=== PATIENT | male | born 1955 | race Caucasian/White ===

== ENCOUNTER → 2020-12-06 16:13 | Outpatient (CLI) | payer MEDICARE, SELFPAY ==
[2020-12-08 10:16] LABS: Covid-19 Nasal PCR Sendout P&C Negative
== END ==
PROVIDERS: Visit Provider Nurse Practitioner Family
DX: Z20.822 Contact with and (suspected) exposure to COVID-19 (principal)
CPT/HCPCS: U0004

== ENCOUNTER 2021-11-05 16:52 | Observation (INO) | payer MEDICARE, SELFPAY ==
[2021-11-05] VITALS (13 sets, daily range): BP systolic 135–171; BP diastolic 66–100; PULSE 68–91; RESP 14–21; TEMP 36.6–36.8; O2SAT 95–99; BMI 32.3; BMI 31.1; BMI 30.9
--- NOTE | 2021-11-05 17:04 | ECG_ITS ---
APPROVED REPORT Exam: Resting ECG HR:77 bpm ECG Measurements Heart Rate 77 AXES NE 178 P 30 QRSd 82 QRS -3 QT 360 T 29 QTc 407 Conclusion Normal sinus rhythm Normal ECG Electronically signed by : Daniel Noland MD 11/06/2021 13:24:51
--- NOTE | 2021-11-05 17:05 | PC.NURSE ---
Pt to CT
--- NOTE | 2021-11-05 17:05 | CT_ITS ---
PROCEDURE INFORMATION: Exam: CT Head Without Contrast Exam date and time: 11/05/2021 5:05 PM Age: 66 years old Clinical indication: Altered mental status/memory loss and speech disturbance; Confusion or disorientation; Slurred speech; Additional info: R/O CVA TECHNIQUE: Imaging protocol: Computed tomography of the head without contrast. Radiation optimization: All CT scans at this facility use at least one of these dose optimization techniques: automated exposure control; mA and/or kV adjustment per patient size (includes targeted exams where dose is matched to clinical indication); or iterative reconstruction. Other technique: STROKE PROTOCOL was implemented. COMPARISON: BRW/O MRI-BRAIN W/O 07/12/2017 8:53 AM FINDINGS: Brain: Vague left greater than right hypoattenuation in the internal capsule and thalamus. See for example image 27 of series 3. This is of uncertain significance, but could represent acute infarct. No hemorrhage. Mild periventricular white matter hypoattenuation may represent chronic small vessel ischemia. No mass effect. Cerebral ventricles: Moderate ventricular enlargement similar to prior. Paranasal sinuses: Visualized sinuses are unremarkable. No fluid levels. Mastoid air cells: Visualized mastoid air cells are well aerated. Bones/joints: Unremarkable. No acute fracture. Soft tissues: Unremarkable. IMPRESSION: Vague left greater than right hypoattenuation in the internal capsule and thalamus. Recommend MR for better characterization and to exclude infarct. ASSESSMENT: ASPECTS ([place] Stroke Program Early CT Score) is 9. Case discussed with Dr. Brooks over the phone at 1:40 p.m. [place] time
[2021-11-05 17:11] LABS: POC Glucose,Bedside 145 (70-110)
--- NOTE | 2021-11-05 17:12 | HMH.EDGENADL ---
ED Disposition Clinical Impression: Stroke Qualifiers: CVA mechanism: unspecified Qualified Code(s): I63.9 - Cerebral infarction, unspecified Disposition: Admitted as Observation Condition on Discharge: Fair Referrals: Provider,Referral, [Referring] - - Critical Care Critical Care Time: No Attestation: On , the high probability of a clinically significant, sudden or life threatening deterioration of the following system(s) required my full and direct attention, intervention and personal management. The time I documented below is in addition to time spent performing reported procedures but includes the following listed in this critical care notation. Medical Decision Making - Medical Records Medical records reviewed: Yes: I reviewed the patient's medical records. MR Comment: Reviewed records on [facility] [employer] link. 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 Last MRI September 2019. He was scheduled for an MRI of the brain this September, but states she was unaware that that has been scheduled, states she did not resolve. - Chris Inquiry Pt receiving controlled substance: No Vital Signs: 11/05/21 16:54 11/05/21 17:31 11/05/21 18:00 Temperature 98.3 F Temperature Source Oral Pulse Rate 80 80 Pulse Rate [Right Radial] 80 Respiratory Rate 18 16 20 Blood Pressure 161/100 H 135/98 H Blood Pressure [Right Arm] 137/96 H Blood Pressure Mean 120 117 Blood Pressure Mean [Right Arm] 109 Blood Pressure Source [Right Arm] Automatic Cuff Blood Pressure Position [Right Arm] Sitting 02 Sat by Pulse Oximetry 99 99 95 Oxygen Delivery Method Room Air 11/05/21 18:30 11/05/21 18:39 11/05/21 19:00 Temperature Temperature Source Pulse Rate 80 76 80 Pulse Rate [Right Radial] Respiratory Rate 16 21 15 Blood Pressure 141/96 H 155/87 H 143/91 H Blood Pressure [Right Arm] Blood Pressure Mean 109 114 Blood Pressure Mean [Right Arm] Blood Pressure Source [Right Arm] Blood Pressure Position [Right Arm] 02 Sat by Pulse Oximetry 99 98 97 Oxygen Delivery Method - Lab Data Lab Results 11/05/21 17:03: POC Glucose 145 H 11/05/21 17:31: WBC 4.5 L, RBC 4.78, Hgb 8.7 L, Hct 30.8 L, MCV 64.5 L, MCH 18.2 L, MCHC 28.3 L, RDW 16.6, Plt Count 503 H, MPV 7.9, Neut % (Auto) 60.6, Lymph % (Auto) 26.8, [place] % (Auto) 8.7, Eos % (Auto) 3.7, Baso % (Auto) 0.3, Neut # (Auto) 2.7, Lymph # (Auto) 1.2, [place] # (Auto) 0.4, Eos # (Auto) 0.2, Baso # (Auto) 0.0 11/05/21 17:31: Sodium 135 L, Potassium 4.0, Chloride 102, Carbon Dioxide 26, Anion Gap 11.0, BUN 15, Creatinine 1.00, Estimated Creat Clear 117, Estimated GFR 75, Est GFR ( Amer) 91, Glucose 132 H, Calcium 9.3 11/05/21 17:31: PT 11.1, INR 0.98, APTT 25.7 11/05/21 19:21: SARS-CoV-2 (PCR) Not detected, Influenza A Untype (PCR) Not detected, Influenza Type B (PCR) Not detected Result diagrams: 11/05/21 17:31 11/05/21 17:31 Orders (Tests/Meds): ED MEDICATIONS Generic Name Dose Route Start Last Admin Trade Name Freq PRN Reason Stop Dose Admin Atorvastatin Calcium 40 mg 11/05/21 21:00 Atorvastatin 40mg Tablet PO 12/05/21 20:59 HS GIOVANY Discontinued Medications Generic Name Dose Route Start Last Admin Trade Name Freq PRN Reason Stop Dose Admin Aspirin 324 mg 11/05/21 17:55 11/05/21 17:58 Aspirin 81mg Chewable Tablet PO 11/05/21 17:56 324 mg ONCE ONE Administration Iopamidol 100 ml 11/05/21 18:44 11/05/21 18:45 Iopamidol-370 (76%);100ml Bottle IV 11/05/21 18:45 100 ml ONCE ONE Administration Sodium Chloride 50 ml 11/05/21 18:44 11/05/21 18:45 0.9 % Sodium Chloride 50 Ml Vial IV 11/05/21 18:45 50 ml ONCE ONE Administration Sodium Chloride 10 ml 11/05/21 18:44 11/05/21 18:45 Sodium Chloride 0.9% 10ml Syr (Rad Only) IV 11/05/21 18:45 10 ml ONCE ONE Administration - Radiology Data #1 Image(s): Chest Fina
--- NOTE | 2021-11-05 17:25 | XR_ITS ---
PROCEDURE INFORMATION: Exam: XR Chest Exam date and time: 11/05/2021 5:25 PM Age: 66 years old Clinical indication: Shortness of breath; Additional info: Stroke SX TECHNIQUE: Imaging protocol: XR of the chest. Views: 1 view. COMPARISON: No relevant prior studies available. FINDINGS: Lungs: Unremarkable. No consolidation. Pleural spaces: Unremarkable. No pleural effusion. No pneumothorax. Heart/Mediastinum: Port-A-Cath in good position. No cardiomegaly. Bones/joints: Unremarkable. IMPRESSION: No acute findings.
--- NOTE | 2021-11-05 17:37 | PC.NURSE ---
on the phone with VIVIEN
--- NOTE | 2021-11-05 17:38 | PC.NURSE ---
speaking with VIVIEN
[2021-11-05 17:39] LABS: Basophils % 0.3 % (0.1-2.0); Eosinophils # 0.2 K/mm3 (0.0-0.4); Eosinophils % 3.7 % (0.1-12.0); Hematocrit 30.8 % (42.0-52.0); Hemoglobin 8.7 g/dL (14.1-18.0); Lymphocytes # 1.2 K/mm3 (0.7-4.5); Lymphocytes % 26.8 % (10-50); Mean Corpuscular HGB Conc 28.3 g/dL (31.8-35.4); Mean Corpuscular Hemoglobin 18.2 pg (27.0-31.2); Mean Corpuscular Volume 64.5 fl (80-94); Mean Platelet Volume 7.9 fl (7.4-10.4); Monocytes # 0.4 K/mm3 (0.1-1.0); Monocytes % 8.7 % (1.7-9.3); Neutrophils # 2.7 K/mm3 (1.8-7.8); Neutrophils % 60.6 % (37.0-80.0); Platelet Count 503 K/mm3 (142-424); Red Blood Count 4.78 M/mm3 (4.60-6.20); Red Cell Distribution Width 16.6 % (11.5-17.5); White Blood Count 4.5 K/mm3 (4.8-10.8)
[2021-11-05 17:48] LABS: Blood Urea Nitrogen 15 mg/dl (9-20); Calcium 9.3 mg/dl (8.4-10.2); Carbon Dioxide 26 mmol/L (22.0-30.0); Chloride 102 mmol/L (98-107); Creatinine Clearance Estimated 117 mL/min (50-200); Estimated Glomerular Filt Rate 75 ml/min (>60); GFR (African American) 91 ML/MIN (>60); Glucose 132 mg/dl (74-100); Sodium 135 mmol/L (136-145)
[2021-11-05 17:50] LABS: Activated Partial Thrombo Time 25.7 seconds (22.8-30.6); INR 0.98 (0.9-1.1); Prothrombin Time 11.1 seconds (10.1-12.5)
--- NOTE | 2021-11-05 17:53 | PC.NURSE ---
calling [facility] stroke team
--- NOTE | 2021-11-05 18:00 | PC.NURSE ---
speaking to dr schwartz
--- NOTE | 2021-11-05 18:03 | CT_ITS ---
PROCEDURE INFORMATION: Exam: CT Angiography Neck With Contrast Exam date and time: 11/05/2021 6:03 PM Age: 66 years old Clinical indication: Other: Stroke protocol TECHNIQUE: Imaging protocol: Computed tomography angiography of the neck with contrast. 3D rendering (Not supervised by radiologist): MIP and/or 3D reconstructed images were created by the technologist. Radiation optimization: All CT scans at this facility use at least one of these dose optimization techniques: automated exposure control; mA and/or kV adjustment per patient size (includes targeted exams where dose is matched to clinical indication); or iterative reconstruction. Contrast material: ISOVUE 370; Contrast volume: 100 ml; Contrast route: INTRAVENOUS (IV); COMPARISON: CT HEAD/BRAIN WO CON 11/05/2021 5:06 PM FINDINGS: Right common carotid artery: No stenosis. No dissection or occlusion. Right internal carotid artery: No stenosis of the extracranial segment. No dissection or occlusion. Right external carotid artery: No occlusion or stenosis of the origin. Left common carotid artery: No stenosis. No dissection or occlusion. Left internal carotid artery: No stenosis of the extracranial segment. No dissection or occlusion. Left external carotid artery: No occlusion or stenosis of the origin. Left anterior cerebral artery: Diminutive or absent left A2 segment. Right vertebral artery: No stenosis. No dissection or occlusion. Left vertebral artery: No stenosis. No dissection or occlusion. Left posterior cerebral artery: origin of the left MAINTAINABILITY ENGINEER. Soft tissues: Normal. No significant soft tissue swelling. Bones/joints: No acute fracture. 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 No high-grade stenosis or occlusion. REFERENCES: NASCET CRITERIA. The degree of internal carotid artery stenosis is based on NASCET criteria. Normal is no stenosis. Mild is less than 50% stenosis. Moderate is 50-69% stenosis. Severe is 70% to 99% stenosis. Total occlusion is no detectable patent lumen.
--- NOTE | 2021-11-05 18:03 | CT_ITS ---
PROCEDURE INFORMATION: Exam: CT Angiography Head With Contrast, Arteriography Exam date and time: 11/05/2021 6:03 PM Age: 66 years old Clinical indication: Other: Stroke protocol TECHNIQUE: Imaging protocol: Computed tomography angiography of the head with contrast. Exam focused on the arteries. 3D rendering (Not supervised by radiologist): MIP and/or 3D reconstructed images were created by the technologist. Radiation optimization: All CT scans at this facility use at least one of these dose optimization techniques: automated exposure control; mA and/or kV adjustment per patient size (includes targeted exams where dose is matched to clinical indication); or iterative reconstruction. Contrast material: ISOVUE 370; Contrast volume: 100 ml; Contrast route: INTRAVENOUS (IV); COMPARISON: CT HEAD/BRAIN WO CON 11/05/2021 5:06 PM FINDINGS: ANTERIOR CIRCULATION: Right internal carotid artery: Unremarkable. Intracranial segment is patent with no significant stenosis. No aneurysm. Right middle cerebral artery: Unremarkable. No occlusion or significant stenosis. No aneurysm. Right anterior cerebral artery: Unremarkable. No occlusion or significant stenosis. No aneurysm. Left internal carotid artery: Unremarkable. Intracranial segment is patent with no significant stenosis. No aneurysm. Left middle cerebral artery: Unremarkable. No occlusion or significant stenosis. No aneurysm. Left anterior cerebral artery: Diminutive or absent A2 POSTERIOR CIRCULATION: Right vertebral artery: Unremarkable. No occlusion or significant stenosis. No aneurysm. Left vertebral artery: Unremarkable. No occlusion or significant stenosis. No aneurysm. Basilar artery: Unremarkable. No occlusion or significant stenosis. No aneurysm. Right posterior cerebral artery: Unremarkable. No occlusion or significant stenosis. No aneurysm. Left posterior cerebral artery: origin Brain: No definite mass, mass effect, or midline shift. Cerebral ventricles: No ventriculomegaly. Bones/joints: Unremarkable. No acute fracture. Soft tissues: Unremarkable. 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 No high-grade stenosis or occlusion.
--- NOTE | 2021-11-05 19:03 | PC.NURSE ---
Spoke with Dr Gonzales with [facility] and he advised to look at the report. made aware.
[2021-11-05 19:25] LABS: Coronavirus 19, PCR Not Detected (NotDetected); Influenza A, PCR Not Detected (NotDetected); Influenza B, PCR Not Detected (NotDetected)
--- NOTE | 2021-11-05 19:31 | PC.NURSE ---
[facility] called to confirm MD saw report on CT head.
--- NOTE | 2021-11-05 20:15 | PC.NURSE ---
[facility]
--- NOTE | 2021-11-05 20:25 | PC.NURSE ---
bed side swallow test done at 2021 pt was able to drinnk 8 oz of water with no difficulty.
--- NOTE | 2021-11-05 20:38 | PC.NURSE ---
pt states that he has not taken any medication in over a month. he also stated that he thought he would be better without them.
--- NOTE | 2021-11-05 20:46 | PC.NURSE ---
Patient admitted to 210
--- NOTE | 2021-11-05 22:42 | PC.NURSE ---
PT ARRIVED TO FLOOR VIA STRETCHER FROM ED W/STAFF @[id number]
[2021-11-06 04:00] VITALS: BP 145/81; PULSE 82; RESP 16; TEMP 36.7; O2SAT 100
[2021-11-06 05:00] VITALS: BMI 31.1
--- NOTE | 2021-11-06 05:24 | PC.NURSE ---
pt admitted last night for CVA, and right sided weakness with slurred speech. Frequent neuro checks through the night reveal mild slurred speech and unable to articulate words at times. bilateral master motorcycle technician noted right sided weakness, pedal pushes normal, pt axo, coherent, memory intact, VSS, pt to be scheduled today for MRI and echo.
--- NOTE | 2021-11-06 06:31 | HMH.HPDC ---
General - General Admission date:: 11/05/21 Discharge date: 11/06/21 *Admission Date: 11/05/21 *Chief complaint: Difficulty using right arm and leg *History of present illness: 66-year-old male presented to the emergency department with over 24-hour history of trouble using his right arm and leg along with altered speech. Patient reports going hunting on Saturday morning. On Saturday morning he awoke and was unable to go hunting due to his new right-sided deficits. Patient presented to our emergency department where CT scan was suggestive of possible early acute infarct. Patient had a CT angiogram of the carotids and cerebral circulation without evidence of thrombosis. ER physician spoke with [facility] and due to the timeframe patient was not considered a candidate for transfer. Patient's been admitted for further neurologic work-up. This morning he reports feeling about the same with no improvement nor any worsening of his symptoms. [facility] History I have reviewed the patient's past medical history: Yes Medical History: Reports:: Cancer (Colon), Hypertension Denies:: Diabetes Mellitus Type 1, Diabetes Mellitus Type 2 *Have you ever received a pneumonia vaccine?: No *Have you received a flu vaccine this season?: Yes Other Surgeries: Yes: Colon Resection - *Social History Last grade of school completed: Some college Smoking Status: Never smoker Alcohol Intake: never *Occupational Status:: disabled Housing: other Household Members: spouse *Travel in the last 8 weeks: None Family Hx:: Non-contributory Review of Systems - Constitutional Denies anorexia, Denies body ache(s), Denies chills, Denies lack of energy - Eyes Denies blurry vision, Denies loss of vision - ENT Denies abnormal hearing, Denies ear discharge - *Cardiovascular Denies chest pain, Denies chest pain at rest, Denies shortness of breath, Denies shortness of breath with activity - *Respiratory Denies change in phlegm color, Denies chest congestion, Denies cough, Denies shortness of breath - *Gastrointestinal Denies bloating - *Genitourinary Denies difficulty urinating, Denies painful urination - *Musculoskeletal Denies joint pain, Denies decreased muscle mass - *Neurologic Reports abnormal speech, Reports unsteadiness, Reports lack of coordination, Reports weakness, Denies dizziness, Denies headache(s), Denies numbness - Psychiatric Denies abnormal sleep pattern, Denies lack of enjoyment Exam Vital signs and Labs for Last 24 Hours: Temp Pulse Resp BP Pulse Ox 98.1 F 82 16 145/81 H 100 11/06/21 04:00 11/06/21 04:00 11/06/21 04:00 11/06/21 04:00 11/06/21 04:00 Laboratory Results - last 24 hr 11/05/21 17:03: POC Glucose 145 H 11/05/21 17:31: WBC 4.5 L, RBC 4.78, Hgb 8.7 L, Hct 30.8 L, MCV 64.5 L, MCH 18.2 L, MCHC 28.3 L, RDW 16.6, Plt Count 503 H, MPV 7.9, Neut % (Auto) 60.6, Lymph % (Auto) 26.8, [place] % (Auto) 8.7, Eos % (Auto) 3.7, Baso % (Auto) 0.3, Neut # (Auto) 2.7, Lymph # (Auto) 1.2, [place] # (Auto) 0.4, Eos # (Auto) 0.2, Baso # (Auto) 0.0 11/05/21 17:31: Sodium 135 L, Potassium 4.0, Chloride 102, Carbon Dioxide 26, Anion Gap 11.0, BUN 15, Creatinine 1.00, Estimated Creat Clear 117, Estimated GFR 75, Est GFR ( Amer) 91, Glucose 132 H, Calcium 9.3 11/05/21 17:31: PT 11.1, INR 0.98, APTT 25.7 11/05/21 19:21: SARS-CoV-2 (PCR) Not detected, Influenza A Untype (PCR) Not detected, Influenza Type B (PCR) Not detected I & O for Last 24 hours: Intake & Output 11/03/21 11/04/21 11/05/21 11/06/21 11:59 11:59 11:59 11:59 Weight 235 lb - Constitutional no acute distress - *Routine HEENT Exam Head: Present: normocephalic Eye: Present: EOMI, PERRL ENT: Present: mucous membranes moist - *Routine Neck Exam Present: supple. Absent: lymphadenopathy - *Routine Respiratory Exam Present: CTA bilaterally - *Routine Cardiovascular Exam Present: RRR - *Routine Abdominal Exam Present: soft, normoac
--- NOTE | 2021-11-06 07:00 | CA_ITS ---
APPROVED REPORT EXAM: Comprehensive 2D, Doppler, and color-flow Echocardiogram Staining Machine Operator: Renetta Andrews, LACHELLE, RVS Ht: 6 ft 1 in Wt: 245lbs BSA: 2.35 BP: 143/90 mmHg Indications: HTN, CVA, Hx-COVID, Hx- colon CA 2D Dimensions LVOT 2.20 cm (M/F) 1.5-2.5 LA Volume 80.90 mL LA Volume Index 34.40 mL/m2 (M/F) 16-34 M-Mode Dimensions RVDd 1.61 cm (0.9-2.6) LA Diam 3.12 cm (1.9-4.0) LVDd 5.83 cm (3.5-5.7) Ao Diam 3.70 cm (2.0-3.7) LVDs 3.83 cm (3.5-5.7) IVSd 0.75 cm (0.6-1.1) PWd 0.75 cm (0.6-1.1) EF (Teich) 61.40% EPSs 0.32 cm FS 33.40% EDV (Teich) 163.30 mL TAPSE 2.02 (<1.7) ESV (Teich) 63.10 mL LV Diastology E Decel Time 223.00 (160-240 msec) E/A Ratio 0.80 MED E' 8.00 (< 7 cm/sec) MED A' 14.30 cm/s E'/MED E' Ratio 12.41 (>14) LAT E' 8.50 (<10 cm/sec) LAT A' 14.70 cm/s E/LAT E' Ratio 11.68 (>14) Aortic Valve LVOT Max 114.00 (70-110 cm/s) LVOT VTI 22.82 cm AoV Peak Jamey. 126.00 (50-130 cm/s) AO Peak GR. 6.40 mmHg AO Mean GR. 3.60 (<5 mmHg) AO VTI 25.12 (18-25 cm) JAHAIRA (VTI) 3.45 (2.5-4.5 cm2) Mitral Valve MV A Velocity 124.00 (40-130 cm/s) E/A Ratio 0.80 MV Decel. Time 223.00 (160-240 ms) Pulmonary Valve PV Peak Velocity 79.00 (50-150 cm/s) NJ End VMAX 145.00 cm/s Left Ventricle Left atrium is mildly enlarged, left ventricle is normal size, mild concentric left ventricular hypertrophy, visually estimated ejection fraction 55% with no regional wall motion abnormality, grade 1 diastolic dysfunction seen without tissue Doppler evidence of raise left atrial pressure. Right Ventricle Right atrium and right ventricle are normal size and contractility. Aortic Valve Aortic valve is minimally thickened and fibrosed, there is no aortic stenosis or aortic insufficiency. Mitral Valve Mitral valve is grossly normal, there is trace mitral regurgitation. Tricuspid Valve Tricuspid grossly normal, there is trace tricuspid regurgitation, tricuspid regurgitation jet velocity is inadequate for calculation of the right ventricular systolic pressure. Pulmonic Valve Pulmonic valve is poorly visualized. Great Vessels Aortic root is normal size. Inferior vena cava is poorly visualized. Pericardium No significant pericardial effusion noted. Conclusion 1. Mildly enlarged left atrium, normal left ventricular size, mild concentric left ventricular hypertrophy, visually estimated ejection fraction 55% with no regional wall motion abnormality, grade 1 diastolic dysfunction seen without tissue Doppler evidence of raise left atrial pressure. 2. Trace mitral and tricuspid regurgitation. 3. No significant pericardial effusion noted. 4. Inferior vena cava is poorly visualized. Electronically signed by : Shahid Lafleur MD 11/06/2021 20:34:08
--- NOTE | 2021-11-06 07:46 | P.CONPHA_ITS ---
[facility] Pharmacy VTE Monitoring - Patient Demographics Admission date: 11/06/21 Report Date: 11/06/21 Time: 07:46 Allergies/Adverse Reactions: Patient Allergies No Known Allergies Allergy (Verified 12/06/20 15:11) Height: 1.85 m Weight: 106.594 kg Patient Problems: Current Active Problems Stroke (Acute) Essential hypertension (Acute) - VTE Risk Labs: VTE Related Lab Results Hgb 8.7 g/dL (14.1-18.0) L 11/05/21 17:31 Hct 30.8 % (42.0-52.0) L 11/05/21 17:31 Plt Count 503 K/mm3 (142-424) H 11/05/21 17:31 PT 11.1 seconds (10.1-12.5) 11/05/21 17:31 INR 0.98 (0.9-1.1) 11/05/21 17:31 APTT 25.7 seconds (22.8-30.6) 11/05/21 17:31 BUN 15 mg/dl (9-20) 11/05/21 17:31 Creatinine 1.00 mg/dl (0.66-1.25) 11/05/21 17:31 Estimated Creat Clear 117 mL/min (50-200) 11/05/21 17:31 Was VTE Risk Assessment Performed: Yes VTE Score: 2 VTE Risk Level: Low Risk Clinical Trial Participant: No - Prophylaxis VTE Prophylaxis Ordered?: Yes Types of VTE Prophylaxis: TEDS Knee High
--- NOTE | 2021-11-06 07:57 | MR_ITS ---
PROCEDURE: MR HEAD/BRAIN WO/W CON CLINICAL INDICATION: R/O STROKE, SLURRED SPEECH COMPARISON: MR [facility] MRI-BRAIN W/WO from 04/07/2015 MR BRW/O MRI-BRAIN W/O from 07/12/2017 TECHNIQUE: Routine multiplanar multi echo sequences are performed without gadolinium enhancement. FINDINGS: No midline shift or mass effect. There is an oval area restricted diffusion in the left thalamus measuring 11 x 7 mm consistent with an acute lacunar infarction. No underlying hemorrhage and no contrast enhancement. No other areas of acute infarction apparent. The cerebellum and cerebellopontine angle has an unremarkable appearance. There is moderate ventriculomegaly similar to the previous exam. The 3rd ventricle and lateral ventricles are enlarged with a normal size 4th ventricle consistent with aqueductal stenosis. There is slight increase in FLAIR signal along the posterior aspect of the cerebral aqueduct and a small focus of increased FLAIR signal noted posterior to the proximal aspect of the 4th ventricle on the left. These areas do not demonstrate contrast enhancement. No enhancing lesions are evident. The pituitary, optic chiasm, and craniocervical junction have an unremarkable appearance. There is thinning of the corpus callosum. No mastoid effusion or sinus air-fluid level. There is mild mucosal thickening in the ethmoid sinus region. IMPRESSION: 1. Acute lacunar infarction in the left thalamus. 2. 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 A small area of increased FLAIR signal is noted posterior to the roof of the cerebral aqueduct and along the left lateral aspect and proximal aspect of the 4th ventricle which could be causing the aqueductal stenosis. This does not demonstrate contrast enhancement but could be related to low-grade gliomatous changes. Neurology/neurosurgery consult may be in order. The hydrocephalus does not appear significantly changed. Dictated by: Trell Mei MD 11/06/2021 12:54 Trell Mei MD in [place] 11/06/2021 12:54
[2021-11-06 08:00] VITALS: BP 162/95; PULSE 79; RESP 18; TEMP 37.1; O2SAT 100
--- NOTE | 2021-11-06 09:48 | HMH.SLDYSPHA ---
Speech & Language Evaluation Speech/Language Dysphagia Evaluation Start: 11/06/21 09:39 Freq: ONCE Status: Active Protocol: Document 11/06/21 09:39 LEONARD (Rec: 11/06/21 09:48 JOLLYTARSHA [id number]) Dysphagia Assess/Goals/Plan Assessment Date of Evaluation: 11/06/21 Evaluation Type Initial Certification Assessment/Problems CVA Does Patient Qualify for Service No Qualify/Failure Comment Based on the results of today' s evaluaiton, patient does not qualify for skilled dysphagia therapy at this time. Recommendations PHYSICIAN CERTIFICATION: The specified therapy services are required, authorized, and reviewed every 30 days. Diet Recommendations Normal Liquid Type Recommendations Normal/Thin SL Swallow Guidelines Standard Aspiration Prec. Dysphagia Swallow Precautions/Strategies Sitting Upright (90 deg),Small Bites and Sips Place Food on Either side of Mouth Plan Pt/Guardian verbally ack understanding Yes of dx/prognosis/goals Pt/Guardian verbally ack understanding Yes of/consent to tx prog G -code Required No Education Instructions provided Diet recommendations discussed with patient, nursing, and care management. Pt/Caregiver able to recall information Unable to ind. understand Reinforcement needed No General Information General Current Food Consistancy Regular,Thin Liquids Dentition Poor Dentition Oxygen Status Room Air Facial Symmetry Symmetrical Ability to Follow Directions Excellent Communication Ability Mild Impairment Dysphagia:Food Presentation Evaluation Food Type Pureed,Mechanical Soft,Regular ,Liquid,Pudding Dysphagia Evaluation Summary Clinical swallow evaluation completed to analyze and assess oropharyngeal swallow. Patient was given multiple boluses of thin liquids via open cup and straw, puree, pudding, mechanical soft, and regular solids. Patient exhibited no overt s/sxs of aspiration with any consistency trialed. No oral stasis noted and no wet vocal quality. Patient passed the 3 oz water test. Recommending regular diet with thin liquids
--- NOTE | 2021-11-06 09:56 | HMH.OTEV ---
OT Inpatient Evaluation Rehab OT IP Evaluation Start: 11/06/21 06:29 Freq: ONCE Status: Complete Protocol: [facility] 11[facility]06/21 09:43 [facility] (Rec: 11/06/21 09:56 [facility] [id number]) Rehab OT IP Assessment Subjective History Pt oriented x3 on arrival. Pt agreeale to engage in therapy evaluation. Pt was admitted via ED on 11/05/21 due to right sided arm/leg weakness. The following information was copied and pasted from physicians history and physical report: 66-year-old male presented to the emergency department with over 24-hour history of trouble using his right arm and leg along with altered speech. Patient reports going hunting on Saturday morning. On Saturday morning he awoke and was unable to go hunting due to his new right-sided deficits. Patient presented to our emergency department where CT scan was suggestive of possible early acute infarct. Patient had a CT angiogram of the carotids and cerebral circulation without evidence of thrombosis. ER physician spoke with [facility] and due to the timeframe patient was not considered a candidate for transfer. Patient's been admitted for further neurologic work-up. This morning he reports feeling about the same with no improvement nor any worsening of his symptoms. Pt has a past medial history of Cancer (Colon), Hypertension. Pt reports prior to being in the hosptial he lived at home with his . Pt claims he was independent with ADLs, but did rely on his to copmlete IAD
--- NOTE | 2021-11-06 10:59 | HMH.PTEV ---
Physical Therapy Evaluation Rehab PT IP Evaluation Start: 11/06/21 06:29 Freq: ONCE Status: Active Protocol: Document 11/06/21 10:56 RAMY (Rec: 11/06/21 10:59 [email or web address] [id number]) Subjective/History History History Pt admitted thru ED for CVA w/ R side affect Subjective Subjective Pt reports willing to participate w/ therapy Rehab PT IP Eval Objective Appearance Patient Behavior Appropriate,Cooperative Patient Orientation Person,Place,Time Difficulty following instructions none Speech Pattern Slurred Ambulation Patient Able to Ambulate Yes Ambulation Observation IP General Gait Pattern Observation Ataxic Gait Ambulation Distance (feet) 40 Ambulation Assistive Device Rolling Walker Ambulation Ability Contact Guard/Hand Hold Balance Ability to Arise Able, uses arms to help Sitting Balance Steady, safe Standing Balance Steady, wide stance Dynamic Sitting Balance Ability Good Dynamic Standing Balance Ability Fair Transfers Bed Transfer Ability Independent Chair Transfer Ability Independent Sit to Stand Bed Transfer Ability Supervision/Stand by Sit to Stand Chair Transfer Ability Supervision/Stand by ROM All Extremities PT ROM Status WFL MMT All Extremities PT MMT WFL Abnormal MMT Grade slight decrease in R hand/ wrist strength Rehab PT IP prob,goals,plan Problems Date of Evaluation: 11/06/21 PT IP Problems Transfers,Gait,Balance,Self care,Safety Rehab Potential Rehab Potential Good Equipment Needs Assistive Devices Rolling / Wheeled Walker Plan PT Intervention Plan Transfers,Gait,Balance,Self care,Safety,Therapeutic Exercise PT Plan Frequency BID Duration LOS Discharge Goals Bed Transfer Ability Independent Sit to Stand Chair Transfer Ability Supervision/Stand by Ambulation Assistive Device Rolling Walker Ambulation Distance (feet) 40 Discharge Plan PT Discharge Plan Pt will benefit from skilled therapy upon dc from [facility]. Pt could either have OPPT or HHPT and supervision/assistance at home for short time. G -code Required Yes Eval Complexity Eval Charge Codes 45558 - Low Complexity G Codes PT Current Status Mobility PT Current Status Modifier C
--- NOTE | 2021-11-06 14:05 | SW/DCPLANNER ---
Addendum entered by Olga Ramirez 11/07/21 10:09: TOOK PATIENT HOME LAST EVENING AFTER I SENT A REFERRAL TO [facility] AND [facility] AFTER SHE ADAMANTLY STATED SHE NEEDED HELP CARING FOR HIM AND THOUGHT HE NEEDED SKILLED REHAB SERVICES... I DID REACH OUT TO [facility] AND ASKED DANIEL TO MAKE CONTACT WITH THEM TO SEE IF SHE CAN OFFER ANY SERVICES... Original Note: WENT IN TO SEE PATIENT AND TODAY, PATIENT STATED HE WANTED TO GO HOME BUT FEELS HE NEEDS TO GO SOMEWHERE R/T HIS FALLING AND UNSTEADY BALANCE.. WHEN PT/OT SAW PATIENT THEY RECOMMENDED EITHER OUTPATIENT OR HOME HEALTH SERVICES.. STATED THEY HAVE STEPS TO GET INTO HIS HOME, THEY LIVE IN A MOBILE HOME AND HAVE STEPS THAT DON'T HAVE RAILING... SHE STATED SHE HAS TO WORK AND HE IS AT HOME ALONE SHE WANTED ME TO SEE IF I CAN GET HIM INTO [facility] OR [facility]... NOT SURE IF HE WILL MEET THEIR CRITERIA BUT WILL SEND IT WITH HOPEFUL FEEDBACK..IF ACCEPTED TO EITHER PLACE, HE IS READY TO GO. IF NOT ACCEPTED WILL SET UP HOME HEALTH LAST RESORT..WILL FOLLOW UP WITH BOTH PLACES...
--- NOTE | 2021-11-06 15:03 | HMH.SLAPHASI ---
Speech & Language Evaluation Speech/Language Aphasia Evaluation Start: 11/06/21 14:53 Freq: once Status: Complete Protocol: Document 11/06/21 14:53 CHEY (Rec: 11/06/21 15:03 CHEY [id number]) Aphasia Assessment/Goals/Plan Assessment Date of Evaluation: 11/06/21 Evaluation Type Initial Certification Assessment/Problems Dysarthria Does Patient Qualify for Service Yes Qualify/Failure Comment Patient does exhibit mild dysartric symptoms but patient will be discharged today according to . It is recommended that he be seen by outpatient, home health, or detention SNF. Plan Pt/Guardian verbally ack understanding Yes of dx/prognosis/goals G -code Required No Speech & Language HPI History Present Illness Rehab Services Assessed Speech therapy Is this evaluation r/t stroke? Yes Aphasia Evaluations Communication Speech Intelligibility Slight Dsyarthric (slurred speech) during conversation Auditory Comprehension Yes: Word Level Sentences Following Directions Paragraph Conversation AC Comment All areas WNL Reading Comprehension Yes: Letter Naming Word Naming Sentences Paragraphs RC Comment All areas WNL Verbal Expressive Language Yes: Automatic Speech Completing Sentences Repetition Abilities Word Level Naming Naming Actions/Objects Sentence Level Defining Words SONNY Comment All areas WNL WL Comment Did not assess Attending/Orientation/Memory Yes: Orientation Attention/Concentration Memory No: Delayed Recall W/ Interference AOM Comment Delayed recall impaired Congnitive/Linguistic Skills Yes: Thought Organization Categorization Similarities/Differences CLS Comment Sequencing impaired Convergent Thinking Yes: Central Theme Identification
[2021-11-06 16:00] VITALS: BP 156/80; PULSE 77; RESP 18; TEMP 36.6; O2SAT 99
== END 2021-11-06 17:16 | disposition home or self-care (01) ==
LOC: ER 20:37 → 2ND 22:36
PROVIDERS: Admitting Provider Family Medicine; Emergency Provider Emergency Medicine; PCP Internal Medicine Adolescent Medicine; Visit Provider Family Medicine
DX: I63.81 Other cerebral infarction due to occlusion or stenosis of small artery (principal); I10 Essential (primary) hypertension; Z20.822 Contact with and (suspected) exposure to COVID-19
CPT/HCPCS: G0378; 70450; 70496; 70498; 70553; 71045; 80048; 82962; 85025; 85610; 85730; 92523; 92610; 93005; 93306; 97116; 97161; 97166; 97530; 99283; A9576; C9803; Q9967; U0003; U0005

== ENCOUNTER 2022-01-05 13:59 | Emergency (ER) | payer MEDICARE, SELFPAY ==
--- NOTE | 2022-01-05 14:07 | CT_ITS ---
FINAL REPORT CLINICAL HISTORY: hx colon ca, now with +hemoccult sent from clinic FINDINGS: CT OF THE ABDOMEN AND PELVIS WITH CONTRAST Axial CT images of the abdomen and pelvis were obtained after the administration of intravenous contrast. Coronal reformatted images were also obtained and reviewed.This study was performed with techniques to keep radiation doses as low as reasonably achievable (ALARA). Individualized dose reduction techniques using automated exposure control or adjustment of mA and/or kV according to the patient's size were employed. Abdomen: The lung bases are clear. There is a large hiatal hernia. The heart is normal in size. The liver has an unremarkable appearance, without evidence of mass or biliary ductal dilatation. The gallbladder is present. The spleen is unremarkable. No adrenal mass is present. The pancreas has an unremarkable appearance. The kidneys are normal, without evidence of mass or hydronephrosis. The aorta is normal in caliber. There is no free fluid or adenopathy. No mass or abnormal fluid collection is seen. There is a large amount of retained stool. There is an umbilical hernia containing fat. Pelvis: The appendix is normal. The urinary bladder is unremarkable. No inflammatory process is seen. There is no evidence of mass or adenopathy. There is no evidence of bowel obstruction. There is a moderate, chronic L1 compression fracture. IMPRESSION: Large amount of retained stool. Large hiatal hernia. No acute intra-abdominal process. Reviewed, Interpreted and Dictated by Aubrey Montes De Oca III, MD Transcribed by Robert lFores Authenticated by Aubrey Montes De Oca III, MD on 01/05/2022 04:10:27 [facility]
[2022-01-05 14:08] VITALS: BP 124/83; BP 132/87; BP 156/84; PULSE 110; PULSE 83; PULSE 84; RESP 20; TEMP 36.4; O2SAT 99; BMI 30.3
[2022-01-05 14:12] VITALS: BMI 30.3
--- NOTE | 2022-01-05 14:27 | ECG_ITS ---
APPROVED REPORT Exam: Resting ECG HR:72 bpm ECG Measurements Heart Rate 72 AXES NJ 176 P 24 QRSd 98 QRS 15 QT 364 T 40 QTc 388 Conclusion SINUS RHYTHM NORMAL ECG UNCONFIRMED REPORT Electronically signed by : Daniel Noland MD 01/06/2022 09:10:49
[2022-01-05 14:30] LABS: Coronavirus 19, PCR Not Detected (NotDetected); Influenza A, PCR Not Detected (NotDetected); Influenza B, PCR Not Detected (NotDetected)
[2022-01-05 14:33] LABS: Basophils % 0.5 % (0.1-2.0); Eosinophils # 0.1 K/mm3 (0.0-0.4); Eosinophils % 2.6 % (0.1-12.0); Hematocrit 30.7 % (42.0-52.0); Hemoglobin 8.2 g/dL (14.1-18.0); Lymphocytes # 1.2 K/mm3 (0.7-4.5); Lymphocytes % 27.2 % (10-50); Mean Corpuscular HGB Conc 26.9 g/dL (31.8-35.4); Mean Corpuscular Volume 63.2 fl (80-94); Mean Platelet Volume 6.6 fl (7.4-10.4); Monocytes # 0.3 K/mm3 (0.1-1.0); Monocytes % 5.8 % (1.7-9.3); Neutrophils # 2.9 K/mm3 (1.8-7.8); Neutrophils % 63.8 % (37.0-80.0); Platelet Count 565 K/mm3 (142-424); Red Blood Count 4.85 M/mm3 (4.60-6.20); Red Cell Distribution Width 16.2 % (11.5-17.5); White Blood Count 4.5 K/mm3 (4.8-10.8)
[2022-01-05 14:35] LABS: Chloride 100 mmol/L (98-107); Potassium 3.9 mmoL/L (3.5-5.1); Sodium 131 mmol/L (136-145)
[2022-01-05 14:38] LABS: Alanine Aminotransferase 21 U/L (12-78); Albumin Level 4.9 g/dl (3.5-5.0); Albumin/Globulin Ratio 1.7 (1.1-1.8); Alkaline Phosphatase 87 U/L (38-126); Anion Gap 10.9 mEq/L (5-15); Aspartate Amino Transferase 30 U/L (17-59); Bilirubin,Total 0.8 mg/dl (0.2-1.3); Blood Urea Nitrogen 11 mg/dl (9-20); Carbon Dioxide 24 mmol/L (22.0-30.0); Creatinine Clearance Estimated 110 mL/min (50-200); Estimated Glomerular Filt Rate 75 ml/min (>60); GFR (African American) 91 ML/MIN (>60); Globulin 2.9 g/dL (1.3-3.2); Total Protein,Serum 7.8 g/dl (6.3-8.2)
[2022-01-05 14:39] LABS: Calcium 8.7 mg/dl (8.4-10.2); Glucose 113 mg/dl (74-100)
--- NOTE | 2022-01-05 14:50 | HMH.EDGENADL ---
ED Disposition Clinical Impression: Lightheadedness Disposition: Home, Self-Care Condition on Discharge: Good Referrals: Jamir Cuenca MD [Primary Care Provider] - - Critical Care Critical Care Time: No Attestation: On 01/05/22, the high probability of a clinically significant, sudden or life threatening deterioration of the following system(s) required my full and direct attention, intervention and personal management. The time I documented below is in addition to time spent performing reported procedures but includes the following listed in this critical care notation. Medical Decision Making - Chris Inquiry Pt receiving controlled substance: No Vital Signs: 01/05/22 14:08 Temperature 97.6 F Temperature Source Oral Pulse Rate [Orthostatic Lying] 84 Pulse Rate [Orthostatic Standing] 110 H Pulse Rate [Radial] 83 Respiratory Rate 20 Blood Pressure [Orthostatic Lying] 124/83 Blood Pressure [Orthostatic Standing] 132/87 Blood Pressure [Right Arm] 156/84 H Blood Pressure Mean [Right Arm] 108 Blood Pressure Position [Right Arm] Sitting 02 Sat by Pulse Oximetry 99 Oxygen Delivery Method Room Air - Lab Data Lab Results 01/05/22 14:14: SARS-CoV-2 (PCR) Not detected, Influenza A Untype (PCR) Not detected, Influenza Type B (PCR) Not detected 01/05/22 14:19: WBC 4.5 L, RBC 4.85, Hgb 8.2 L, Hct 30.7 L, MCV 63.2 L, MCH 17.0 L, MCHC 26.9 L, RDW 16.2, Plt Count 565 H, MPV 6.6 L, Neut % (Auto) 63.8, Lymph % (Auto) 27.2, Logan % (Auto) 5.8, Eos % (Auto) 2.6, Baso % (Auto) 0.5, Neut # (Auto) 2.9, Lymph # (Auto) 1.2, Logan # (Auto) 0.3, Eos # (Auto) 0.1, Baso # (Auto) 0.0 01/05/22 14:19: Sodium 131 L, Potassium 3.9, Chloride 100, Carbon Dioxide 24, Anion Gap 10.9, BUN 11, Creatinine 1.00, Estimated Creat Clear 110, Estimated GFR 75, Est GFR ( Amer) 91, Glucose 113 H, Calcium 8.7, Total Bilirubin 0.8, AST 30, ALT 21, Alkaline Phosphatase 87, Total Protein 7.8, Albumin 4.9, Globulin 2.9, Albumin/Globulin Ratio 1.7, PSA Screen 1.8 01/05/22 14:19: Blood Type O Positive, Antibody Screen Negative 01/05/22 15:30: Urine Color Yellow, Urine Appearance Clear, Urine pH 6.0, Ur Specific Jefferson 1.015, Urine Protein Negative, Urine Glucose (UA) Negative, Urine Ketones Negative, Urine Blood Negative, Urine Nitrate Negative, Urine Bilirubin Negative, Urine Urobilinogen 0.2, Ur Leukocyte Esterase Negative, Urine RBC None, Urine WBC Occasional, Ur Squamous Epith Cells Occasional, Urine Bacteria None Result diagrams: 01/05/22 14:19 01/05/22 14:19 Orders (Tests/Meds): ED MEDICATIONS Discontinued Medications Generic Name Dose Route Start Last Admin Trade Name Freq PRN Reason Stop Dose Admin Iopamidol 75 ml 01/05/22 14:53 01/05/22 14:54 Iopamidol-370 (76%);100ml Bottle IV 01/05/22 14:54 75 ml ONCE ONE Administration Sodium Chloride 10 ml 01/05/22 14:53 01/05/22 14:54 Sodium Chloride 0.9% 10ml Syr (Rad Only) IV 01/05/22 14:54 10 ml ONCE ONE Administration Medical Decision Narrative: DDx includes but not limited to UTI, recurrence of GI malignancy, colonic polyp, dehydration, symptomatic anemia. HDS, NAD, well appearing, cool skin with pale mucosa, but GCS 15 and denies history of obvious blood loss or more specifically any GI blood loss. has right sided ataxia in arm and leg which is present on exam today and was present during his exam in 10/2021 when he was found to have acute left thalamic infarct. GCS 15. Denies any lightheadness here in the ED. PCP sent patient from clinic where patient was stool hemoocult positive and requested cbc, cmp, ct a/p, psa. Will order type and screen. Labs here show h/h 8.2/30.8 and this is mildly changed from previous 11/05/21 when h/h 8.9/30.7. Given hematocrit not largely changed, and given MCV<70, less likely acute blood loss anemia. +hemoccult from clinic may have been false positive result. ua here without significant findings altogether suggestive of uti. urine culture w
[2022-01-05 15:24] LABS: Prostate Specific Ag Screen 1.8 ng/ml (0.0-4.0)
[2022-01-05 15:37] LABS: Microscopic, Urine URINE MICROSCOPIC (MICROSCOPIC)
[2022-01-05 15:45] LABS: Appearance,Urine CLEAR (Clear); Bilirubin,Urine Negative (Negative); Blood, Urine Negative (Negative); Color,Urine YELLOW (Yellow); Glucose,Urine (UA) Negative (Negative); Ketones,Urine Negative (Negative); Leukocyte Esterase,Urine Negative (Negative); Nitrate,Urine Negative (Negative); Protein,Urine Negative (Negative); Specific Gravity, Urine 1.015 (1.005-1.030); Urobilinogen,Urine 0.2 EU/dl (0.2)
[2022-01-05 16:28] LABS: Squamous Epithelial Cell,Urine Occasional #/hpf (0-5); WBC,Urine Occasional #/hpf (0-3)
[2022-01-05 17:41] LABS: Calcium Oxalate Crystals,Urine Trace /lpf
[2022-01-05 17:44] VITALS: BP 155/78; PULSE 78; RESP 16; TEMP 36.6; O2SAT 98
== END 2022-01-05 17:47 | disposition home or self-care (01) ==
PROVIDERS: Emergency Provider Student in an Organized Health Care Education/Training Program; PCP Emergency Medicine
DX: R42 Dizziness and giddiness (principal); I10 Essential (primary) hypertension; E78.5 Hyperlipidemia, unspecified; Z79.899 Other long term (current) drug therapy; Z85.038 Personal history of other malignant neoplasm of large intestine; Z20.822 Contact with and (suspected) exposure to COVID-19
CPT/HCPCS: 74177; 80053; 81001; 85025; 86850; 93005; 96365; 96367; 96375; 96376; 99283; 99284; G0103; C9803; Q9967; U0003; U0005

== ENCOUNTER → 2022-02-28 11:29 | Outpatient (CLI) | payer MEDICARE, SELFPAY ==
[2022-02-28 12:02] LABS: Basophils % 0.3 % (0.1-2.0); Eosinophils # 0.2 K/mm3 (0.0-0.4); Eosinophils % 3.4 % (0.1-12.0); Hematocrit 34.1 % (42.0-52.0); Hemoglobin 9.8 g/dL (14.1-18.0); Lymphocytes # 1.3 K/mm3 (0.7-4.5); Lymphocytes % 21.3 % (10-50); Mean Corpuscular HGB Conc 28.7 g/dL (31.8-35.4); Mean Corpuscular Hemoglobin 18.4 pg (27.0-31.2); Mean Corpuscular Volume 64.2 fl (80-94); Mean Platelet Volume 7.8 fl (7.4-10.4); Monocytes # 0.4 K/mm3 (0.1-1.0); Neutrophils # 4.2 K/mm3 (1.8-7.8); Platelet Count 496 K/mm3 (142-424); Red Blood Count 5.32 M/mm3 (4.60-6.20); Red Cell Distribution Width 21.2 % (11.5-17.5); White Blood Count 6.2 K/mm3 (4.8-10.8)
== END ==
PROVIDERS: Visit Provider Emergency Medicine
DX: I63.9 Cerebral infarction, unspecified (principal); Z01.812 Encounter for preprocedural laboratory examination; Z11.52 Encounter for screening for COVID-19; Z12.11 Encounter for screening for malignant neoplasm of colon; Z86.010 Personal history of colon polyps
CPT/HCPCS: 36415; 85025; C9803; U0003; U0005

== ENCOUNTER 2022-03-02 09:20 | Day surgery (SDC) | payer MEDICARE, SELFPAY ==
[2022-02-28 09:01] VITALS: BMI 30.9
[2022-03-02 10:24] VITALS: BP 168/80; PULSE 79; RESP 18; TEMP 36.5; O2SAT 100
--- NOTE | 2022-03-02 10:50 | HMH.ANESCL ---
[facility] Anesthesia Checklist - Patient Identification Patient Identification: Arm Band - Structural Data Admitted From: Home Planned Operative Procedure/s: Colonoscopy Consent for Planned Operative Procedure(s) Verified: Yes Verified Documents: Surgical Consent - NPO Status Verified Time NPO: 03:00 - Airway Assessment C-Spine Mobility Assessed: Yes TMJ Mobility Assessed: Yes Dentition: Good Dentition - Neurological Assessment Level of Consciousness: Awake, Alert, Appropriate - Anesthesia Plan Anesthesia Risk discussed: Yes ASA Class: III Anesthesia Type: MAC [facility] History I have reviewed the patient's past medical history: Yes Medical History: Reports:: Cancer, Cerebrovascular Accident, Hypertension Denies:: Diabetes Mellitus Type 1, Diabetes Mellitus Type 2, Internal Pacemaker, MRSA, Seizures *Have you ever received a pneumonia vaccine?: No *Have you received a flu vaccine this season?: Yes Anesthesia experience/problems:: no issues Other Surgeries: Yes: Cancer Surgery, Colon Resection. No: Pacemaker Amputation: No Fractures: No - *Social History Last grade of school completed: Some college Smoking Status: Never smoker Alcohol Intake: never Substance Use Type: denies use *Occupational Status:: disabled Housing: other Household Members: spouse *Travel in the last 8 weeks: None Family Hx:: Stroke, Cancer, Diabetes, Hyperlipidemia, Hypertension, Heart Attack
[2022-03-02 11:59] VITALS: O2SAT 100
--- NOTE | 2022-03-02 12:26 | HMH.SCOPE ---
- Procedure: Date: 03/02/22 Patient Date of :: 1955 Procedure Performed:: Total colonoscopy Indications:: Patient is a 66-year-old male referred by Dr. Cuenca for colonoscopy. Apparently the patient had undergone colon resection for colon cancer in 2016 at outside facility. The exact details are unknown. He apparently did have chemotherapy and has a port placed. Exact details of the staging and type of chemotherapy are unknown. He has apparently not had a subsequent colonoscopy since his colon resection. He does state that this was found after work-up for what sounds like possibly symptomatic anemia and colitis. However, the exact details are unknown. He had apparently been undergoing examination by his primary care provider in the office and there was noted to be some blood in the stool. He was therefore sent for colonoscopy. Note, the patient did have a stroke in October 2021. Details are unknown. Performing Provider:: Aubrey Hanley MD Referring Provider:: Alexis Cuenca MD Sedation:: MAC sedation Procedure:: Patient was taken to the endoscopy procedure room. He was positioned in lateral decubitus position. Adequate intravenous sedation was achieved with anesthesia titration of propofol. Variable stiffness Olympus colonoscope was inserted via the anus. Was advanced to the cecum. Colonic preparation was decent where there was some particulate stool and some undigested vegetable matter within the colon. Irrigation and suctioning was performed which allowed for decent visualization. Ileocecal valve and appendiceal orifice were clearly identified. Colonoscope was slowly withdrawn through the colon with careful surveillance. There was some rather [place] left-sided diverticuli noted. Anastomosis was identified at approximately 18 to 20 cm from the anal verge is a rectosigmoid anastomosis. There was a short segment of blind loop of residual rectosigmoid colon. There were adjacent diverticuli. No evidence of any local recurrence. Retroflexion within the rectum revealed no evidence of any pathologic internal hemorrhoids. Colonoscope was withdrawn. Findings:: Left-sided Diverticuli Anastomosis at approximately 18 to 20 cm as apparent low anterior resection Recommendations:: Follow-up colonoscopy pending previous history. I will see if I can obtain any records. Complications:: None immediately apparent Estimated blood obtained (mL): 0
[2022-03-02 12:30] VITALS: BP 136/75; PULSE 73; RESP 16; TEMP 36.2; O2SAT 92
[2022-03-02 12:40] VITALS: BP 113/65; PULSE 67; RESP 16; O2SAT 97
[2022-03-02 12:50] VITALS: BP 147/78; PULSE 60; RESP 16; O2SAT 99
[2022-03-02 13:00] VITALS: BP 146/85; PULSE 58; RESP 18; O2SAT 100
== END 2022-03-02 13:00 | disposition home or self-care (01) ==
LOC: OUTP 09:22
PROVIDERS: PCP Emergency Medicine; Visit Provider Surgery
PROC: 0DJD8ZZ Inspection of Lower Intestinal Tract, Via Natural or Artificial Opening Endoscopic (ICD-10-PCS; principal; 2022-03-02 10:30)
DX: Z12.11 Encounter for screening for malignant neoplasm of colon (principal); K57.30 Diverticulosis of large intestine without perforation or abscess without bleeding; Z90.49 Acquired absence of other specified parts of digestive tract; Z85.038 Personal history of other malignant neoplasm of large intestine; I10 Essential (primary) hypertension; Z86.73 Personal history of transient ischemic attack (TIA), and cerebral infarction without residual deficits; Z82.3 Family history of stroke; Z80.9 Family history of malignant neoplasm, unspecified; Z82.49 Family history of ischemic heart disease and other diseases of the circulatory system; Z83.438 Family history of other disorder of lipoprotein metabolism and other lipidemia
CPT/HCPCS: G0105

== ENCOUNTER 2022-03-13 14:28 | Outpatient (CLI) | payer MEDICARE, SELFPAY | END 2022-03-13 15:01 | disposition home or self-care (01) | PROVIDERS: PCP Emergency Medicine; Visit Provider Surgery | DX: Z45.2 Encounter for adjustment and management of vascular access device (principal) | CPT/HCPCS: 96523; J1642 ==

== ENCOUNTER → 2022-06-01 14:05 | Outpatient (CLI) | payer MEDICARE, SELFPAY ==
[2022-06-01 13:17] LABS: Basophils # 0.1 K/mm3 (0-0.2); Basophils % 1.2 % (0.1-2.0); Eosinophils # 0.2 K/mm3 (0.0-0.4); Eosinophils % 3.1 % (0.1-12.0); Hematocrit 46.3 % (42.0-52.0); Hemoglobin 13.8 g/dL (14.1-18.0); Lymphocytes # 1.1 K/mm3 (0.7-4.5); Lymphocytes % 16.1 % (10-50); Mean Corpuscular HGB Conc 29.8 g/dL (31.8-35.4); Mean Corpuscular Hemoglobin 23.3 pg (27.0-31.2); Mean Corpuscular Volume 77.9 fl (80-94); Mean Platelet Volume 8.9 fl (7.4-10.4); Monocytes # 0.4 K/mm3 (0.1-1.0); Monocytes % 6.2 % (1.7-9.3); Neutrophils % 73.5 % (37.0-80.0); Platelet Count 343 K/mm3 (142-424); Red Blood Count 5.94 M/mm3 (4.60-6.20); White Blood Count 6.8 K/mm3 (4.8-10.8)
[2022-06-01 13:20] LABS: Iron 95 ug/dL (49-181)
== END ==
PROVIDERS: PCP Emergency Medicine; Visit Provider Emergency Medicine
DX: D64.9 Anemia, unspecified (principal)
CPT/HCPCS: 83540; 85025

== ENCOUNTER 2023-02-20 20:50 | Emergency (ER) | payer MEDICARE, SELFPAY ==
[2023-02-20 21:02] VITALS: BP 160/100; PULSE 110; RESP 18; TEMP 36.8; O2SAT 98; BMI 31.5
--- NOTE | 2023-02-20 21:40 | PC.NURSE ---
Pt given provider list with [facility] d/t no PCP. Educated the need for a PCP and shown all the provider options.
--- NOTE | 2023-02-20 21:41 | PC.NURSE ---
Per MD, staff collected wound cx from L index finger secretions, used Bactroban ointment and dressed pt's wound. Gave education on wound care and cx result follow up
--- NOTE | 2023-02-20 21:43 | HMH.EDNVD ---
Discharge Plan Disposition Patient Disposition: Home, Self-Care Prescriptions Prescriptions: New pantoprazole [Protonix] 40 mg tablet,delayed release (DR/EC) 40 mg PO DAILY 28 Days Qty: 28 0RF No Action docusate sodium [Stool Softener] 100 mg capsule 100 mg PO DAILY aspirin 81 mg tablet,delayed release (DR/EC) 81 mg PO DAILY Qty: 90 1RF atorvastatin 40 mg tablet 40 mg PO HS Qty: 90 1RF lisinopril 10 mg tablet 10 mg PO DAILY Qty: 90 1RF multivitamin Tablet 1 tab PO DAILY Qty: 90 1RF Slow Fe 142 mg (45 mg iron) tablet extended release 142 mg PO DAILY tamsulosin 0.4 mg capsule 0.4 mg PO DAILY Rx Instructions: TAKE ONE CAPSULE BY MOUTH EVERY DAY finasteride 5 mg tablet 5 mg PO DAILY Rx Instructions: TAKE ONE TABLET BY MOUTH EVERY DAY AT BEDTIME Referrals Follow up/Referrals: Jamir Cuenca MD [Primary Care Provider] - See instructions Clinical Impressions Clinical Impression: Acute pancreatitis, Hernia, hiatal Instructions Patient Instructions: DI for Nausea -- Adult Discharge ED Provider: Joellen (ED)Jamir Nausea/Vomiting/Diarrhea HPI General Chief complaint: Nausea/Vomiting/Diarrhea Stated complaint: vomiting Time Seen by Provider: 02/20/23 21:43 Mode of Arrival: Wheelchair Source of Information: Patient, Spouse and Medical Record Limitations: No Limitations Description of Symptoms (Recalled from ER Triage Doc. by RN): Pt arrives via private vehicle with c/o severe n/v since 1629. Does report eating a stromboli with a salad 30 minutes before vomiting. States he has vomitted greater than 6 times since 1629. Denies any diarrhea or abdominal pain. History of Present Illness HPI Narrative: pt with n/v this afternoon after eating - no blood in vomitus and no diarrhea or abd pain complaint: nausea and vomiting Onset (ago): hour(s) Associated Abdominal Pain: No Severity: moderate Related Data Home Medications Medication Instructions Recorded Confirmed ferrous sulfate 142 mg (45 mg 142 mg PO DAILY Supplement 06/01/22 02/20/23 iron) tablet,extended release (Slow Fe) docusate sodium 100 mg capsule 100 mg PO DAILY stool softener 08/28/22 02/20/23 (Stool Softener) finasteride 5 mg tablet 5 mg PO DAILY enlarged prostate 02/20/23 02/20/23 tamsulosin 0.4 mg capsule 0.4 mg PO DAILY urinary retention 02/20/23 02/20/23 Previous Rx's Medication Instructions Recorded aspirin 81 mg tablet,delayed 81 mg PO DAILY Blood thinner #90 08/28/22 release tabs atorvastatin 40 mg tablet 40 mg PO HS Cholesterol #90 tabs 08/28/22 lisinopril 10 mg tablet 10 mg PO DAILY High blood pressure 08/28/22 #90 tabs multivitamin 1 tab PO DAILY Supplement #90 tabs 08/28/22 pantoprazole 40 mg tablet,delayed 40 mg PO DAILY 4 weeks #28 tabs 02/21/23 release (Protonix) Allergies Allergy/AdvReac Type Severity Reaction Status Date / Time No Known Allergies Allergy Verified 08/28/22 14:30 [facility] Disclaimer: The information contained in this section may have been updated after the patient was seen, as this information can be updated by other users. Medical History (Updated 02/21/23 @ 00:09 by Jamir Cuenca (THERON)MD) Brain lesion History of anemia Hyperlipemia, mixed Nocturia Surgical History (Updated 08/28/22 @ 14:34 by Anuradha Alvarado MA) History of colon resection Port-A-Cath in place Social History Smoking Status: Former smoker alcohol intake: never substance use type: denies use current occupational status: disabled Travel in the last 8 weeks: None household members: spouse housing: other current occupational exposures/hazards: No caffeine: Yes ROS Obtained: Yes All systems reviewed & no additional complaints except as documented Physical Exam General General appearance: alert Head Head exam: normocephalic Eye Eye exam: Present PERRL and EOMI; Absent scleral icterus ENT ENT exam: Pres
--- NOTE | 2023-02-20 21:44 | CT_ITS ---
PROCEDURE INFORMATION: Exam: CT Abdomen And Pelvis With Contrast Exam date and time: 02/20/2023 10:32 PM Age: 67 years old Clinical indication: Nausea and vomiting; Additional info: N/v after eating dinner TECHNIQUE: Imaging protocol: Computed tomography of the abdomen and pelvis with contrast. Radiation optimization: All CT scans at this facility use at least one of these dose optimization techniques: automated exposure control; mA and/or kV adjustment per patient size (includes targeted exams where dose is matched to clinical indication); or iterative reconstruction. Contrast material: ISOVUE; Contrast volume: 75 ml; Contrast route: IV; REPORTING DATA: Count of CT and Cardiac NM exams in prior 12 months: This patient has received 0 known CTs and 0 known cardiac nuclear medicine studies in the 12 months prior to the current study. COMPARISON: CT ABDOMEN PELVIS W CON 01/05/2022 2:47 PM FINDINGS: Diaphragm: Stable large hiatal hernia. Liver: Normal. No mass. Gallbladder and bile ducts: Normal. No calcified stones. No ductal dilation. Pancreas: Normal. No ductal dilation. Spleen: Normal. No splenomegaly. Adrenal glands: Normal. No mass. Kidneys and ureters: Normal. No hydronephrosis. Stomach and bowel: Postsurgical changes of colon with partial resection. Appendix: No evidence of appendicitis. Intraperitoneal space: Unremarkable. No free air. No significant fluid collection. Retroperitoneal space: Faint retroperitoneal fat stranding near aortic bifurcation (series 3, images 74 ,75) Vasculature: Unremarkable. No abdominal aortic aneurysm. Lymph nodes: Unremarkable. No enlarged lymph nodes. Urinary bladder: Unremarkable as visualized. Reproductive: Unremarkable as visualized. Bones/joints: Unremarkable. No acute fracture. Soft tissues: Unremarkable. IMPRESSION: 1. Again similar large hiatal hernia. 2. Nonspecific mild fatty stranding in retroperitoneal region especially pronounced in region of aortic bifurcation suspicious for subtle inflammation, etiology indeterminate, although possibly reactive to vomiting.
[2023-02-20 21:52] VITALS: BP 184/97; PULSE 103; O2SAT 95
[2023-02-20 21:52] LABS: Amylase 187 U/L (30-110)
--- NOTE | 2023-02-20 21:52 | PC.NURSE ---
Rounded on pt. No needs or complaints voiced at this time.
[2023-02-20 21:53] LABS: Lipase 571 U/L (23-300)
[2023-02-20 22:06] LABS: Chloride 100 mmol/L (98-107); Potassium 4.2 mmoL/L (3.5-5.1); Sodium 137 mmol/L (136-145)
[2023-02-20 22:07] LABS: Basophils % 0.2 % (0.1-2.0); Eosinophils % 0.2 % (0.1-12.0); Hematocrit 53.8 % (42.0-52.0); Hemoglobin 16.8 g/dL (14.1-18.0); Lymphocytes # 0.6 K/mm3 (0.7-4.5); Lymphocytes % 5.3 % (10-50); Mean Corpuscular HGB Conc 31.2 g/dL (31.8-35.4); Mean Corpuscular Volume 92.9 fl (80-94); Mean Platelet Volume 7.8 fl (7.4-10.4); Monocytes # 0.2 K/mm3 (0.1-1.0); Monocytes % 2.1 % (1.7-9.3); Neutrophils # 10.2 K/mm3 (1.8-7.8); Neutrophils % 92.2 % (37.0-80.0); Platelet Count 362 K/mm3 (142-424); Red Blood Count 5.79 M/mm3 (4.60-6.20); Red Cell Distribution Width 13.2 % (11.5-17.5); White Blood Count 11.1 K/mm3 (4.8-10.8)
[2023-02-20 22:08] LABS: Blood Urea Nitrogen 16 mg/dl (9-20); Creatinine Clearance Estimated 113 mL/min (50-200); Estimated Glomerular Filt Rate 85 ml/min (>60); GFR (African American) 102 ML/MIN (>60)
[2023-02-20 22:09] LABS: Alanine Aminotransferase 36 U/L (12-78); Albumin/Globulin Ratio 1.7 (1.1-1.8); Alkaline Phosphatase 112 U/L (38-126); Anion Gap 14.2 mEq/L (5-15); Aspartate Amino Transferase 43 U/L (17-59); Bilirubin,Total 0.7 mg/dl (0.2-1.3); Calcium 9.6 mg/dl (8.4-10.2); Carbon Dioxide 27 mmol/L (22.0-30.0); Glucose 170 mg/dl (74-100)
[2023-02-20 22:18] LABS: MANUAL DIFFERENTIAL MANUAL DIFFERENTIAL (MANUAL DIFF)
[2023-02-20 22:29] LABS: C-Reactive Protein 0.8 mg/L (0-4)
[2023-02-20 22:42] LABS: Procalcitonin 0.049 ng/mL (0.0-2.0)
[2023-02-20 22:44] LABS: Erythrocyte Sedimentation Rate 1 mm/hr (0-20)
[2023-02-20 23:00] VITALS: BP 162/94; PULSE 102; O2SAT 95
[2023-02-20 23:30] VITALS: BP 113/77; PULSE 117; O2SAT 93
--- NOTE | 2023-02-20 23:32 | PC.NURSE ---
called radiology to check status of ct read. States it is being read at this time
[2023-02-20 23:38] LABS: Microscopic, Urine URINE MICROSCOPIC (MICROSCOPIC)
[2023-02-20 23:41] LABS: Appearance,Urine CLEAR (Clear); Blood, Urine Negative (Negative); Color,Urine YELLOW (Yellow); Glucose,Urine (UA) Negative (Negative); Ketones,Urine 2+ (Negative); Leukocyte Esterase,Urine Negative (Negative); Nitrate,Urine Negative (Negative); Protein,Urine TRACE (Negative); Specific Gravity, Urine >= 1.030 (1.005-1.030); Urobilinogen,Urine 0.2 EU/dl (0.2)
--- NOTE | 2023-02-20 23:42 | PC.NURSE ---
rounded on pt, his IV fluids were unhooked for him to go to the bathroom, I attempted to reconnect the IVF but pt refused. Stating no, I feel fine and want to go home . His HR is still elevated 118-120s. I educated to the pt & his the need to complete the fluids, he continued to refuse
[2023-02-20 23:52] LABS: Anisocytosis 1+; Hypochromasia 1+; Lymphocytes % 7 % (10-50); Monocytes % 4 % (2-9); Neutrophils % 89 % (42-76); Platelet Estimate Normal; Total Cells Counted 100
[2023-02-20 23:53] LABS: Bilirubin,Urine 1+ (Negative); RBC,Urine Occasional #/hpf (0-3); Squamous Epithelial Cell,Urine Occasional #/hpf (0-5)
[2023-02-21 00:02] VITALS: BP 129/75; PULSE 112; RESP 19; TEMP 36.9; O2SAT 94
== END 2023-02-21 00:10 | disposition home or self-care (01) ==
PROVIDERS: Emergency Provider Emergency Medicine; PCP Emergency Medicine
DX: K85.90 Acute pancreatitis without necrosis or infection, unspecified (principal)
CPT/HCPCS: 74177; 80053; 81001; 82150; 83690; 84145; 85007; 85025; 85651; 86140; 96360; 96374; 96375; 99284; 99285; J2405; Q9967

== ENCOUNTER 2023-05-02 13:00 | Outpatient (RCR) | payer MEDICARE, SELFPAY ==
--- NOTE | 2023-01-02 11:58 | HMH.PTOPEV ---
PT Outpatient Evaluation Rehab PT Outpatient Evaluation Start: 01/02/23 08:03 Freq: Status: Active Protocol: Document 01/02/23 08:03 MARTY (Rec: 01/02/23 11:58 MARTY [id number]) E-signed By Meredith Doe, PT Outpatient Therapy Subjective History Subjective History Pt is a 67 y/o male who reports history of a stroke in 10/2021. Pt reports he woke up one morning with right sided weakness and altered speech so he went to [facility] ER. Pt reports he had CT scans and a brain MRI. Per chart review , brain MRI performed at [facility] on 11/05/21 showed acute lacunar infarct of the left thalamus. Pt reports he went to [place] for a little over a week. Pt reports then he had home health for a couple of months which helped to improve his gait. Pt denies changes in hearing or visual deficits since the stoke, reports his last eye exam was in 2014 and he is generally PLATINUM. 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 Pt reports he does not use an AD in the house and will occasionally use a quad cane for community ambulation. Pt's reports he refuses to use a walker. Pt reports he has fallen multiple times just this year. Pt reports falls occur with walking, getting up from his recliner and when using the restroom at night. Pt's states she notices he gets in a hurry a lot and is unable to slow himself down . Pt denies serious injuries from falls and states home health taught him how to fall properly. Pt reports he has 4 stairs to get into his house with a newly built handrail
--- NOTE | 2023-01-28 14:14 | HMH.RHREAS ---
Rehab Reassessment Rehab OP Re-assessment Start: 01/28/23 12:55 Freq: Status: Active Protocol: Document 01/28/23 12:55 MARTY (Rec: 01/28/23 14:14 MARTY [id number]) E-signed By Meredith Doe PT Rehab Re-assessment Subjective Subjective Pt reports he has been using an upright rollator since onset of PT without issues. Pt reports he has fallen once since his initial PT evaluation while walking across his living room without an AD. Pt reports his walking feels a little improved since starting PT. Objective Objective Notes RLE MMT: 4+/5 grossly TU with upright rollator Sit to stand: improved control , moments of posterior LOB once standing improved with encouraged anterior weight shift Gait: ataxic requiring cues for decreased gait speed and smaller steps to decrease fall risk Continues to demonstrate impulsive movements and lack of control/coordination with movements although improved since IE Assessment Progress Assessment Progressing as Expected Assessment Notes Pt has attended 6 PT visits consisting of aerobic exercise , functional LE strengthening, balance/coordination training , and gait training with good tolerance. Pt demonstrates slightly improved endurance, ataxic gait and balance/ coordination with improved TUG time compared to initial evaluation. Pt continues to demonstrate instances of posterior LOB with sit to stand transfers and instances of anterior LOB with gait due to ataxic movements. Pt is impulsive at times requiring cues for sequencing and slow, controlled movemetns. Pt would
--- NOTE | 2023-02-26 14:59 | HMH.RHREAS ---
Rehab Reassessment Rehab OP Re-assessment Start: 01/28/23 12:55 Freq: Status: Active Protocol: Document 02/26/23 14:07 MARTY (Rec: 02/26/23 14:59 MARTY [id number]) E-signed By Meredith Doe PT Rehab Re-assessment Subjective Subjective Pt reports he feels that he continues to improve with balance in strength. Pt reports he is using the quad cane for household ambulation and the upright rollator for community ambulation. Pt reports he returns to his MD this week. Pt reports he fell last week due to having stomach pain and emesis from an issue with his pancreas. Pt reports he feels better currently. Objective Objective Notes TU with quad cane and step through pattern, CGA cue for slow controlled movements 5 time sit to stand: 27 from standard chair with UE use LE MMT: 4+/5 grossly Gait: requires cues for slow controlled movements and intermittent cues for sequencing of quad cane and rollator Assessment Progress Assessment Progressing as Expected Assessment Notes Pt has attended 13 PT visits consisting of aerobic exercise , functional LE strengthening, balance/coordination training , and gait training with good tolerance. Pt demonstrates slightly improved endurance. LE strength, gait with quad cane, and TUG time this date compared to last reassessment. Pt continues to demonstrate incoordination of the right side and impulsive movements that erquire cues for sequencing and slow, controlled movemetns. Pt would continue to benefit from skilled PT to further improve LE strength, gait mechanics, transfers and balance/
--- NOTE | 2023-03-28 14:56 | HMH.RHREAS ---
Rehab Reassessment Rehab OP Re-assessment Start: 01/28/23 12:55 Freq: Status: Active Protocol: Document 03/28/23 13:00 MARTY (Rec: 03/28/23 14:56 MARTY [id number]) E-signed By Meredith Doe PT Rehab Re-assessment Subjective Subjective Pt reports he was fitted for an AFO at [facility] yesterday. Pt states this helped his leg feel more stable and improved knee hyperextension/pain. Pt reports he is supposed to receive his AFO in ~5 weeks. Pt denies new complaints, issues or falls. Objective Objective Notes TU with quad cane and step through pattern, CGA cue for slow controlled movements (cueing for proper quad cane sequencing) 5 time sit to stand: 23 from standard chair with UE use RLE MMT: hip flexion 5/5, hip abd/add 4+/5, knee ext 4+/5, knee flexion 5/5, ankle DF 4/5 Gait: requires cues for slow controlled movements and intermittent cues for sequencing of quad cane and rollator Assessment Progress Assessment Progressing as Expected Assessment Notes Pt has attended 19 PT visits consisting of aerobic exercise , functional LE strengthening, balance/coordination training , and gait training with good tolerance. Pt demonstrated improved 5x sit to stand outcome measure this date compared to last reassessment. Pt continues to demonstrate ataxic gait and impulsivity with movements that require cues for sequencing with AD and slow, controlled movements . Pt was fitted for an AFO that should assist with knee stability and foot drop during gait. Pt would continue to benefit from skilled PT to further improve LE st
--- NOTE | 2023-05-02 14:56 | HMH.RHREAS ---
Rehab Reassessment Rehab OP Re-assessment Start: 01/28/23 12:55 Freq: Status: Active Protocol: Document 05/02/23 13:03 MARTY (Rec: 05/02/23 14:56 MARTY [id number]) E-signed By Meredith Doe PT Rehab Re-assessment Subjective Subjective Pt reports he has not yet received his AFO. Pt reports his R knee is feeling better overall. Pt reports he fell earlier this week walking to the bathroom in the middle of the night with his cane. Pt denies injuries from the fall. Pt reports he has been walking for exercises but has not been compliant with his HEP. Objective Objective Notes TU with quad cane and step through pattern 5x sit to stand: 22 from standard chair without UE support Gait: continues to require verbal cueing with upright rollator and quad cane for safe/proper sequencing to decrease fall risk Assessment Progress Assessment Progressing as Expected Assessment Notes Pt has attended 21 PT visits consisting of aerobic exercise , functional LE strengthening, balance/coordination training , and gait training with good tolerance. Pt demonstrated improved 5x sit to stand and TUG outcome measure this date compared to last reassessment. Pt continues to demonstrate ataxic gait and impulsivity with movements that require cues for sequencing with AD and slow, controlled movements for safety. Pt is still awaiting custom AFO. Due to longer than expected wait time for AFO and improvements in functional outcome measures, pt is appropriate to discharge to independent HEP. Pt was educated on importance of compliance with HEP and
== END 2023-05-02 13:05 | disposition home or self-care (01) ==
LOC: PT 13:00
PROVIDERS: PCP Emergency Medicine; Visit Provider Emergency Medicine
DX: I63.89 Other cerebral infarction (principal)
CPT/HCPCS: 97110; 97112; 97116; 97140; 97163; 97164; 97530

== ENCOUNTER 2023-05-02 14:00 | Outpatient (RCR) | payer MEDICARE, SELFPAY ==
--- NOTE | 2023-01-08 12:16 | HMH.OTOPEV ---
OT Inpatient Evaluation Rehab OT Outpatient Eval Start: 01/08/23 11:57 Freq: Status: Active Protocol: Document 01/08/23 11:57 YULIETRANDY (Rec: 01/08/23 12:16 DIAMONDLYLY [id number]) E-signed By Yojana Laird, OT Outpatient Therapy Subjective History Subjective History 67 year old male referred to skilled OP OT services for R UE weakness and poor fine motor coordination. Patient had CVA on Nov 04 2021 which affected R UE weakness, poor manager rail strengthening and overall coordination. Patient verbalize having difficulty picking up items and/or dropping items at home. Patient has limited legibility of writing/signing his first and last name. B UE AROM is WFL. STGs: 1. Patient will trace a variety of line within 1/4 from border with focus on improving handwriting skills. 2. Patient will write first and last name with upper and lowercase letters without model 3 times in 4 out of 5 tx session with 50% legibility for increased graphomotor skills. 3. Patient will write sentences with using appropriate size and spacing 3 times in 4 out of 5 tx sessions with Min A and 25% verbal cues for increased graphomotor skills while maintaing a tripod grasp. 4. Patient to improve L UE manager rail to 115# and R UE manager rail to 95# with focus on improving grapomotor skills. LTGs: 1. Patient will trace a variety of line within <1/4 from border with focus on improving handwriting skills. 2. Patient will write first and last name with upper and lowercase letters without
== END 2023-05-02 14:05 | disposition home or self-care (01) ==
LOC: OT 14:00
PROVIDERS: PCP Emergency Medicine; Visit Provider Emergency Medicine
DX: M79.621 Pain in right upper arm (principal); I69.398 Other sequelae of cerebral infarction
CPT/HCPCS: 97010; 97014; 97110; 97164; 97165; 97530; G0283

== ENCOUNTER 2023-12-25 09:18 | Outpatient (CLI) | payer MEDICARE, SELFPAY ==
--- NOTE | 2023-12-25 09:22 | XR_ITS ---
FINAL REPORT CLINICAL HISTORY: right knee pain COMPARISON: None FINDINGS: Three views of the right knee reveal no evidence of fracture or dislocation. The bony alignment is normal. There is mild degenerative change.. There is no evidence of joint effusion. No localized soft tissue abnormality is identified. IMPRESSION: Mild degenerative change without acute abnormality identified. Reviewed, Interpreted and Dictated by Aubrey Montes De Oca III, MD Transcribed by Olga Wilhelm Authenticated and [facility]
== END 2023-12-25 23:59 ==
LOC: RAD 09:20
PROVIDERS: PCP Nurse Practitioner Family; Visit Provider Orthopaedic Surgery
DX: M25.561 Pain in right knee (principal)
CPT/HCPCS: 73562

== ENCOUNTER 2023-12-25 10:21 | Outpatient (RCR) | payer MEDICARE, SELFPAY | END 2023-12-25 11:30 | disposition home or self-care (01) | LOC: PT 10:21 | PROVIDERS: Visit Provider Orthopaedic Surgery | DX: M17.11 Unilateral primary osteoarthritis, right knee (principal); M25.361 Other instability, right knee | CPT/HCPCS: 97760 ==

== ENCOUNTER 2024-01-22 15:00 | Outpatient (RCR) | payer MEDICARE, SELFPAY ==
--- NOTE | 2024-01-01 17:08 | HMH.PTOPEV ---
PT Outpatient Evaluation Rehab PT Outpatient Evaluation Start: 01/01/24 14:49 Freq: Status: Active Protocol: Document 01/01/24 14:49 JOERachael (Rec: 01/01/24 17:06 MARTY [id number]) E-signed By Meredith Doe, PT Outpatient Therapy Subjective History Subjective History Pt is a 68 y/o male who reports chronic R anterior knee pain worsening after he suffered a stroke in 2020. Pt reports his right knee will often hyperextend and feel unstable with walking. Pt had a right knee xray on 12/25/23 with impression of Mild degenerative change without acute abnormality identified. Pt reports a sharp pain and popping sensation when his knee hyperextends. Pt denies swelling or numbness/tingling. Pt reports pain is aggravated by walking on even and uneven terrain and traversing stairs . Pt reports he received a cortisone injection in the knee which abolished pain, pt denies pain or hyperextension of the knee since. Pt also reports he received a knee brace last week he has been wearing with community ambulation but does not use it at home. Pt reports he uses a quad cane for ambulation. Pt reports he fell last week getting up in the middle of the night to use the restroom, denies injuries from the fall . 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 Chief Complaint Pain,Gives out/Unstable Symptom Type Sharp Symptoms Relieved By Rest/Positioning,Brace/Support Symptoms Aggravated By Physical Activity,Walking Current Functional Limitations Walking,Stairs,Balance Symptom Description Intermittent Level of pain today (0-10) 0 Pain scale - at its best (0-10) 0 Pain scale - at its worst (0-10) 9 Hip/Knee Eval Gait Observation General Gait Pattern Observation Ataxic Gait Assistive Device Assistive Devices Straight Cane Palpation Tenderness right Knee Palpation Overall Comment no tenderness to palpation noted this date MMT Hip Flexion Strength Grade 4 Good Hip Abduction Strength Grade 4 Good Hip Adduction Strength Grade 4 Good Hip Extension Strength Grade 4 Good Knee Extension Strength Grade 4 Good Knee Flexion Strength Grade 4 Good ROM Knee Extension Active Range of Motion ( 0 degrees) Knee Flexion Active Range of Motion ( 125 degrees) Effusion joint effusion knee exam standard right Mid - Patellar Circumerential Measure ( 40 cm) Lower Extremity Functional Index Activities Today, do you or would you have any difficulty at all with: a.Any of your usual work, housework or Extreme difficulty or unable school activities to perform activity b. Your usual hobbies, recreational or Extreme difficulty or unable sporting activities to perform activity c. Getting into or out of the bath No difficulty d. Walking between rooms A little bit of difficulty e. Putting on your shoes or socks No difficulty f. Squatting A little bit of difficulty g. Lifting an object, like a bag of No difficulty groceries from the floor h. Performing light activities around A little bit of difficulty your home i. Performing heavy activities around Quite a bit of difficulty your home j. Getting into or out of a car No difficulty k. Walking 2 blocks Quite a bit of difficulty l. Walking a mile Quite a bit of difficulty m. Going up or down 10 stairs (about 1 Quite a bit of difficulty flight of stairs) n. Standing for 1 hour Extreme difficulty or unable to perform activity o. Sitting for 1 hour Moderate difficulty p. Running on even ground Extreme difficulty or unable to perform activity q. Running on uneven ground Extreme difficulty or unable to perform activity r. Making sharp turns while running fast Extreme difficulty or unable to perform activity s. Hopping Extreme difficulty or unable to perform activity t. Rolling over in bed No difficulty LEFI Score Lower Extremity Functional Index Score 35 Outpatient Therapy Assessment Impairments Problems/Impairmments Impaired Strength,Impaired Gait Pattern,Impaired Walking, Impaired Standing,Impaired Household Care,Impaired Stair Climbing,Impaired Incline Stepping,Impaired Stepping on Uneven Surface,Impaired Squatting,Impaired Balance, Subjective C/O Pain,Impaired Self Care/Self Management Prognosis Rehab Potential Good Clinical Impression Consistent with Diagnosis Yes Short Term Goals Number of Weeks 3 Improve LEFI Score Yes: Improve score to 45 to improve overall QOL Decrease Subjective C/O Pain Yes: Improve pain at worst to 7/10 to improve overall QOL Improve Self Care/Self Management Yes Patient to be Ind w/ HEP Yes Top And Seat Cover Fitter Goals Number of Weeks 6 Increase Strength Yes: Improve RLE MMT to 4+/5 grossly to assist with function Improve Ability to Climb Stairs Yes: 1 flight with HR and pain 5/10 or less to assist with community navigation Improve LEFI Score Yes: Improve score to 55 or more to improve overall QOL Decrease Subjective C/O Pain Yes: Improve pain at worst to 5/10 to improve overall QOL Outpatient Therapy Plan of Care Treatment Plan May Include Therapeutic Exercise Including Home Yes Exercise Program Manual Therapy Techniques Yes Neuromuscular Re-education Yes Therapeutic Activities to Return to Yes Previous Functional/Work Level Gait Training Yes ADL/Self Care Education Yes Dry Needling Yes Thermal Modalities Yes Electrical Stimulation Yes Ultrasound/Phonophoresis Yes Iontophoresis Yes Orthotics/Bracing/Splinting Yes Vasopneumatic Compression Pump Yes Massage Yes Group Therapy for Medicare Yes Eval/Re-Eval Yes Frequency Times per week 2 Duration Number of Weeks 4-6 Addendums This patient is a candidate for social No or vocational rehab? Patient/Guardian verbally acknowledges Yes understanding of treatment program and consents to further treatment? Patient/Guardian verbally acknowledges Yes understanding of diagnosis, prognosis and goals for treatment? Eval Complexity PT Charges 78677 - Moderate Complexity Shoulder/Elbow Eval Shoulder Objective Measurements Elbow Objective Measurements PHYSICIAN CERTIFICATION: I certify the specified therapy services for Michael Rubén Brando are required, authorized, and reviewed every 30 days.
== END 2024-01-22 16:20 | disposition home or self-care (01) ==
LOC: PT 15:00
PROVIDERS: PCP Nurse Practitioner Family; Visit Provider Orthopaedic Surgery
DX: M17.11 Unilateral primary osteoarthritis, right knee (principal); M25.361 Other instability, right knee
CPT/HCPCS: 97110; 97163; 97530

== ENCOUNTER 2024-01-31 10:20 | Outpatient (CLI) | payer MEDICARE, SELFPAY ==
[2024-01-31 11:24] LABS: Basophils % 0.7 % (0.1-2.0); Eosinophils # 0.2 K/mm3 (0.0-0.4); Eosinophils % 2.8 % (0.1-12.0); Hematocrit 49.1 % (42.0-52.0); Hemoglobin 15.8 g/dL (14.1-18.0); Lymphocytes # 1.3 K/mm3 (0.7-4.5); Lymphocytes % 22.2 % (10-50); Mean Corpuscular HGB Conc 32.3 g/dL (31.8-35.4); Mean Corpuscular Hemoglobin 29.9 pg (27.0-31.2); Mean Corpuscular Volume 92.5 fl (80-94); Mean Platelet Volume 7.3 fl (7.4-10.4); Monocytes # 0.4 K/mm3 (0.1-1.0); Neutrophils # 4.1 K/mm3 (1.8-7.8); Neutrophils % 68.3 % (37.0-80.0); Platelet Count 247 K/mm3 (142-424); Red Blood Count 5.31 M/mm3 (4.60-6.20); Red Cell Distribution Width 13.2 % (11.5-17.5)
[2024-01-31 12:08] LABS: Alanine Aminotransferase 30 U/L (12-78); Albumin Level 4.1 g/dl (3.5-5.0); Albumin/Globulin Ratio 1.7 (1.1-1.8); Alkaline Phosphatase 88 U/L (38-126); Aspartate Amino Transferase 33 U/L (17-59); Bilirubin,Total 0.9 mg/dl (0.2-1.3); Blood Urea Nitrogen 17 mg/dl (9-20); Calcium 9.4 mg/dl (8.4-10.2); Carbon Dioxide 25 mmol/L (22.0-30.0); Chloride 104 mmol/L (98-107); Chol/HDL Ratio 3.4 (1-3.5); Cholesterol 175 mg/dl (140-200); Estimated Glomerular Filt Rate 97 ml/min (>60); GFR (African American) 117 ML/MIN (>60); Globulin 2.4 g/dL (1.3-3.2); Glucose 106 mg/dl (74-100); HDL Cholesterol 51 mg/dl (40-60); Sodium 136 mmol/L (136-145); Total Protein,Serum 6.5 g/dl (6.3-8.2); Triglycerides 95 mg/dl (30-150); VLDL Cholesterol 19 mg/dL (0-40)
[2024-01-31 12:18] LABS: Direct LDL Cholesterol 89.55 mg/dL (100-129)
[2024-01-31 12:23] LABS: 25-OH Vitamin D, Total 48.6 ng/mL (30-100)
[2024-01-31 12:37] LABS: Prostate Specific Ag Screen 1.5 ng/ml (0.0-4.0); Thyroid Stimulating Hormone 1.43 uIU/mL (0.465-4.68)
== END 2024-01-31 23:59 ==
LOC: LAB 10:22
PROVIDERS: PCP Nurse Practitioner Family; Visit Provider Nurse Practitioner Family
DX: R53.83 Other fatigue (principal); I10 Essential (primary) hypertension; E55.9 Vitamin D deficiency, unspecified; Z12.5 Encounter for screening for malignant neoplasm of prostate; E78.5 Hyperlipidemia, unspecified; Z68.30 Body mass index [BMI] 30.0-30.9, adult; Z87.891 Personal history of nicotine dependence
CPT/HCPCS: 36415; 80053; 80061; 82306; 84443; 85025; G0103

== ENCOUNTER 2024-05-08 12:32 | Outpatient (CLI) | payer MEDICARE, SELFPAY ==
--- NOTE | 2024-05-08 12:33 | US_ITS ---
FINAL REPORT CLINICAL HISTORY: Post void residual-- urnary bladder FINDINGS: ULTRASOUND BLADDER WITH POST VOID RESIDUAL Bladder volumes were estimated based on 3 dimensional measurements, pre- and postvoid. Prevoid bladder volume: 51 mls Postvoid bladder volume: 16 mls Prevoid bladder was poorly distended. There is a sessile filling defect in the base of the bladder which could be related to prostate indenting the bladder although bladder mass is not excluded. This measures approximately 20 mm diameter x8 mm thickness. IMPRESSION: Estimated bladder volumes as above with small postvoid residual . Filling defect base of the bladder may be related to prostatic hypertrophy although bladder mass not excluded. Authenticated and ERN
== END 2024-05-08 23:59 | disposition home or self-care (01) ==
LOC: RAD 12:33
PROVIDERS: PCP Nurse Practitioner Family; Visit Provider Urology
DX: R35.0 Frequency of micturition (principal); N40.1 Benign prostatic hyperplasia with lower urinary tract symptoms
CPT/HCPCS: 76857

== ENCOUNTER 2024-06-05 10:19 | Day surgery (SDC) | payer MEDICARE, SELFPAY ==
[2024-06-05 10:29] VITALS: BP 170/98; PULSE 91; RESP 18; TEMP 36.2; O2SAT 94; BMI 30.9
[2024-06-05] MEDS: 0.9 % SODIUM CHLORIDE 1000ML 1,000 ML 25 ML IV (11:01)
[2024-06-05 11:05] VITALS: BP 140/88; PULSE 80; RESP 18; TEMP 36.8; O2SAT 97
[2024-06-05 11:35] VITALS: BP 140/88; PULSE 80; RESP 18; TEMP 36.8; O2SAT 97
--- NOTE | 2024-06-06 07:26 | HMH.PROCNOTE ---
[facility] Procedure Note Date: 06/05/24 Time: 10:00 Procedure Note:: Chart review: The patient is troubled with urinary frequency and nocturia x 5. There is been some question of whether he needs a sleep study. He is on Flomax and Proscar. He says that he cannot take oxybutynin because of diarrhea. Myrbetriq is too expensive. During the day he does better getting an urge to urinate every 2 hours or so. But when he does have to urinate he has a feeling of urgency and a poor stream, and double voiding. Preop diagnosis bladder outlet obstruction with LUTS Postop diagnosis: Bladder outlet obstruction with LUTS. Operative note: The patient was brought to the cystoscopy room is prepped and draped in the usual fashion. He underwent flexible cystoscopy. The patient has a 3 cm prostate bilobar obstruction. He has some urethritis of the membranous urethra. The bladder shows heavy trabeculation with small diverticuli. The ureteral orifices are normal. He tolerated the procedure well and will come in follow-up in a couple weeks.
== END 2024-06-05 11:35 | disposition home or self-care (01) ==
PROVIDERS: PCP Nurse Practitioner Family; Visit Provider Urology
PROC: 0TJB8ZZ Inspection of Bladder, Via Natural or Artificial Opening Endoscopic (ICD-10-PCS; CPT 52000; principal; 2024-06-05 11:15)
DX: R35.0 Frequency of micturition; R35.1 Nocturia; N34.2 Other urethritis; N32.3 Diverticulum of bladder; N32.0 Bladder-neck obstruction
CPT/HCPCS: 52000

== ENCOUNTER 2025-03-28 03:22 | Emergency (ER) | payer MEDICARE, SELFPAY ==
--- NOTE | 2025-03-28 03:34 | ED_ITS ---
Discharge Plan Disposition Patient Disposition: Home, Self-Care Prescriptions Prescriptions: New levofloxacin 750 mg tablet 750 mg PO DAILY 5 Days Qty: 5 0RF No Action sildenafil (pulm.hypertension) 20 mg tablet 20 mg PO DAILY PRN (Reason: sexual activity) Qty: 10 2RF Rx Instructions: take 1 to 2 as needed for sexual activity mirabegron 50 mg tablet extended release 24 hr 50 mg PO DAILY Qty: 30 3RF trospium 20 mg tablet PO DAILY Patient Comments: TAKE ONE TABLET BY MOUTH TWICE DAILY Gemtesa 75 mg tablet 75 mg PO DAILY aspirin 81 mg tablet,delayed release (DR/EC) See Rx Instructions .ROUTE .COMPLEX Qty: 90 3RF Dose Instruction: TAKE ONE TABLET BY MOUTH EVERY DAY FOR blood thinner Rx Instructions: TAKE ONE TABLET BY MOUTH EVERY DAY FOR blood thinner atorvastatin 40 mg tablet See Rx Instructions .ROUTE .COMPLEX Qty: 90 3RF Dose Instruction: TAKE ONE TABLET BY MOUTH EVERY NIGHT AT BEDTIME FOR cholesterol Rx Instructions: TAKE ONE TABLET BY MOUTH EVERY NIGHT AT BEDTIME FOR cholesterol lisinopril 10 mg tablet See Rx Instructions .ROUTE .COMPLEX Qty: 90 3RF Dose Instruction: TAKE ONE TABLET BY MOUTH EVERY DAY HIGH BLOOD PRESSURE Rx Instructions: TAKE ONE TABLET BY MOUTH EVERY DAY HIGH BLOOD PRESSURE pantoprazole 40 mg tablet,delayed release (DR/EC) See Rx Instructions .ROUTE .COMPLEX Qty: 90 3RF Dose Instruction: TAKE ONE TABLET BY MOUTH EVERY DAY Rx Instructions: TAKE ONE TABLET BY MOUTH EVERY DAY ferrous sulfate 142 mg (45 mg iron) tablet extended release 142 mg PO DAILY Qty: 90 3RF finasteride 5 mg tablet See Rx Instructions .ROUTE .COMPLEX Qty: 30 2RF Dose Instruction: TAKE ONE TABLET BY MOUTH EVERY DAY AT BEDTIME Rx Instructions: TAKE ONE TABLET BY MOUTH EVERY DAY AT BEDTIME multivitamin Tablet See Rx Instructions .ROUTE .COMPLEX Qty: 90 1RF Dose Instruction: TAKE ONE TABLET BY MOUTH EVERY DAY Rx Instructions: TAKE ONE TABLET BY MOUTH EVERY DAY tamsulosin 0.4 mg capsule See Rx Instructions .ROUTE .COMPLEX Qty: 60 2RF Dose Instruction: TAKE TWO CAPSULES BY MOUTH EVERY DAY Rx Instructions: TAKE TWO CAPSULES BY MOUTH EVERY DAY Referrals Follow up/Referrals: Nilda Metz APRN [Nurse Practitioner] - See instructions Provider,Referral, MD [Primary Care Provider] - See instructions Activity Restrictions/Add. Instructions Additional Instructions/Restrictions: Please take antibiotics as prescribed to try to prevent infection. Please call and follow-up with our ear nose and throat doctors as soon as possible. Clinical Impressions Clinical Impression: Complex laceration of left ear Qualifiers: Encounter type: initial encounter Qualified Code(s): S01.312A - Laceration without foreign body of left ear, initial encounter Instructions Patient Instructions: DI for Laceration Repair Print Language Print Language: Azerbaijani Discharge ED Provider: Karel Knight General Adult HPI General Chief complaint: Wound/Laceration Stated complaint: AO fall 229 ear injury Time Seen by Provider: 03/28/25 03:34 History of Present Illness HPI narrative: 69-year-old male with history of prior stroke with residual deficits presents after fall from standing. He got up to walk to the bathroom in the middle the night with the lights off and tripped and fell striking his head and sustaining a laceration to the left ear. He reports that he is on aspirin. Patient reports that his ear hurts but otherwise he has no symptoms such as headache neck pain chest pain abdominal pain shortness of breath or any other extremity issues. Related Data Home Medications ?Medication ?Instructions ?Recorded ?Confirmed vibegron 75 mg tablet (Gemtesa) 75 mg PO DAILY 08/11/24 02/09/25 trospium 20 mg tablet mg PO DAILY 02/09/25 02/09/25 Previous Rx's ?Medication ?Instructions ?Recorded sildenafil (pulm.hypertension) 20 20 mg PO DAILY PRN sexual activity 08/23/23 mg tablet #10 tabs mirabegron 50 mg tablet,extended 50 mg PO DAILY #30 tabs 05/19/24 release 24 hr aspirin 81 mg tablet,delayed See Rx Instructions .Route 08/11/24 release .COMPLEX #90 tabs atorvastatin 40 mg tablet See Rx Instructions .Route 08/11/24 .COMPLEX #90 tabs ferrous sulfate 142 mg (45 mg 142 mg PO DAILY Supplement #90 tabs 08/11/24 iron) tablet,extended release lisinopril 10 mg tablet See Rx Instructions .Route 08/11/24 .COMPLEX #90 tabs pantoprazole 40 mg tablet,delayed See Rx Instructions .Route 08/11/24 release .COMPLEX #90 tabs finasteride 5 mg tablet See Rx Instructions .Route 12/02/24 .COMPLEX #30 tabs multivitamin See Rx Instructions .Route 03/04/25 .COMPLEX #90 tabs tamsulosin 0.4 mg capsule See Rx Instructions .Route 03/04/25 .COMPLEX #60 caps levofloxacin 750 mg tablet 750 mg PO DAILY 5 days #5 tabs 03/28/25 Allergies Allergy/AdvReac Type Severity Reaction Status Date / Time No Known Allergies Allergy Verified 02/09/25 12:53 [facility] Disclaimer: The information contained in this section may have been updated after the patient was seen, as this information can be updated by other users. Medical History Brain lesion History of anemia Nocturia Hyperlipemia, mixed Surgical History History of colon resection Port-A-Cath in place Family History Other Family history of cancer Family history of diabetes mellitus type II Family history of hyperlipidemia Family history of hypertension Social History Smoking Status: Unknown if ever smoked alcohol intake: never substance use type: denies use current occupational status: disabled Travel in the last 8 weeks?: None household members: spouse housing: other current occupational exposures/hazards: No caffeine: Yes Have you lived/traveled outside US in past 30 days?: No Contact w/someone who lives/traveled outside US past 30 days?: No Exposure to someone with infectious disease in past 14 days?: No Do you have a fever (greater than 100.4 F or 38 C)?: No Have you tested positive for COVID-19?: No Exposed to someone with COVID-19 in past 14 days?: No Do you have a sore throat?: No Do you have a cough?: No Do you have any weakness?: No Do you have any diarrhea?: No Are you experiencing any unusual bleeding?: No Do you have any muscle aches/pain?: No Do you have any abdominal pain?: No Are you experiencing loss of taste or smell?: No Other Medical History Have you received the Flu Vaccine for this season: Yes Have you received the Pneumonia Vaccine: Yes ROS Obtained: Yes All systems reviewed & no additional complaints except as documented Physical Exam General General appearance: alert and in no apparent distress Head Head exam: normocephalic and other (Laceration to the left ear with significant exposed cartilage. Laceration extends from the top of the helix inferiorly through the antitragus and part of the lobe. Laceration extends through the anterior skin and cartilage, the posterior skin remains intact.) Eye Eye exam: Present normal appearance, PERRL and EOMI ENT ENT exam: Present normal oropharynx and normal external ear exam Neck Neck exam: Present normal inspection and full ROM Chest Chest inspection: Present normal inspection and symmetric chest wall rise; Absent tenderness Respiratory Respiratory exam: Present normal lung sounds bilaterally; Absent respiratory distress Cardiovascular Cardiovascular exam: Present regular rate and normal rhythm Abdominal Exam Abdominal exam: Present soft; Absent distention, tenderness or guarding Extremities Exam Extremities exam: Present normal inspection; Absent edema or joint swelling Back Exam Back exam: Present normal inspection; Absent tenderness Neurological Exam Neurological exam: Present alert and oriented X3; Absent motor sensory deficit Psychiatric Psychiatric exam: Present normal affect and normal mood Skin Skin exam: Present warm, dry and normal color Lymphatic Lymphatic Findings: no adenopathy Medical Decision Making Medical Records Medical records reviewed: Yes I reviewed the patient's medical records. Screening: Per USPSTF and CDC recommendations, given the prevalence of disease in our region, it is our hospital?s policy to screen for HIV and viral Hepatitis for all patients aged 18 and over and those with ongoing risk factors. Chris Inquiry Pt receiving controlled substance: No Chris was queried for this patient: No Vital Signs: 03/28/25 03:37 03/28/25 03:43 03/28/25 05:56 Temperature 98.0 F 98.9 F Temperature Source Oral Pulse Rate 96 H 95 H Pulse Rate [Left] 93 H Respiratory Rate 18 16 Blood Pressure 153/93 H 153/93 H Blood Pressure [Right Arm] 153/93 H Blood Pressure Mean [Right Arm] 113 Blood Pressure Position Sitting 02 Sat by Pulse Oximetry 97 97 Oxygen Delivery Method Room Air Room Air Room Air Lab Data Lab results reviewed: Yes I reviewed the patient's lab results. Orders (Tests/Meds): ED MEDICATIONS Discontinued Medications Generic Name Dose Route Start Last Admin Trade Name Freq PRN Reason Stop Dose Admin Levofloxacin 750 mg 03/28/25 05:45 03/28/25 05:48 Levofloxacin 750 Mg Tablet PO 03/28/25 05:46 750 mg ONCE ONE Administration Lidocaine HCl 5 ml 03/28/25 04:19 03/28/25 04:27 Lidocaine 1% 5ml Pf Vial IJ 03/28/25 04:20 5 ml ONCE ONE Administration Tetanus/Reduced Diphtheria/Acell Pertussis 0.5 ml 03/28/25 04:19 03/28/25 04:27 Tet/Diphth/Pert-Adult 0.5ml Syringe IM 03/28/25 04:20 0.5 ml .ONCE ONE Administration ORDERS Category Date Time Status CT cervical spine wo con Stat Cat Scan 03/28/25 03:[address] head/brain wo con Stat Cat Scan 03/28/25 03:47 Completed CXR --portable [XR chest portable] Stat Exams 03/28/25 03:47 Completed Pelvis XR 1-2 views [XR pelvis 1-2V] Stat Exams 03/28/25 03:47 Completed Medical Decision Narrative: 69-year-old male with history of stroke presents for mechanical fall on blood thinners with extensive laceration to the left ear.. History was obtained via interactive discussion with patient, family, chart review. On arrival, patient is [afebrile, hemodynamically stable, satting appropriately, alert, oriented x4, GCS 15], moving all extremities spontaneously. Full physical exam performed and significant for complex laceration of the left ear as documented above. Differential includes but is not limited to intracranial trauma intrathoracic trauma intra-abdominal trauma spine trauma extremity trauma.. Patient was given tetanus shot for symptomatic management and correction of underlying abnormalities. Workup initiated including CT head, CT C-spine, chest and pelvis x-ray. On re-evaluation, patient [remains afebrile, HD stable.] Imaging independently interpreted by me and significant for evidence of intracranial bleeding or cervical fracture, clear lungs bilaterally without focal opacity, no pelvic fracture. See radiology read for full review of final results. A auricular block was performed, the wound was extensively irrigated and reapproximated and repaired with 14 nonabsorbable sutures. A bolster and compression dressing were applied. Patient was given Levaquin for antibiotic prophylaxis and instructed to follow-up with our ENT team as soon as possible for wound check. Procedures Risk/Benefits of Procedure(s) Were Explained: Yes Laceration Laceration 1: Site: other (Ear laceration extends from the top portion of the helix down vertically through the antitragus and into the lobe. The posterior skin is intact throughout, the cartilage is lacerated and avulsed.) Side (If applicable): left Size (cm): 5 Description: linear and clean Depth: involves subcutaneous layer (Laceration extends through the perichondrium and cartilage) Local Anesthetic: lidocaine 1% Pre-repair: wound explored and irrigated extensively Skin layer closed with: other (Ethilon) Size (cm): 5-0 Number of sutures: 14 Technique: simple, interrupted Nerve Block Nerve Block 1: Local Anesthetic: lidocaine 1% Amount of anesthesia used (mL): 10 Side: Left Nerve Blocks: other (Auricular) Procedure Successful: Yes Patient Tolerated Procedure: well Complications: pain with procedure Critical Care Critical Care Time Critical Care Time: No
[2025-03-28 03:37] VITALS: BP 153/93; PULSE 96; O2SAT 97
[2025-03-28 03:43] VITALS: BP 153/93; PULSE 93; RESP 18; TEMP 36.7; O2SAT 97; BMI 29.7
--- NOTE | 2025-03-28 03:47 | CT_ITS ---
PROCEDURE INFORMATION: Exam: CT Head Without Contrast Exam date and time: 03/28/2025 3:56 AM Age: 69 years old Clinical indication: Injury or trauma; Fall; Blunt trauma (contusions or hematomas); Additional info: Fall on blood thinners TECHNIQUE: Imaging protocol: Computed tomography of the head without contrast. Radiation optimization: All CT scans at this facility use at least one of these dose optimization techniques: automated exposure control; mA and/or kV adjustment per patient size (includes targeted exams where dose is matched to clinical indication); or iterative reconstruction. COMPARISON: MR HEAD/BRAIN WO/W CON 11/06/2021 12:05 PM FINDINGS: Brain: Normal. No hemorrhage. Unremarkable white matter. No mass effect. Cerebral ventricles: Moderate-severe hydrocephalus is again demonstrated with dilation of the lateral ventricles and 3rd ventricles and without dilation of the 4th ventricle similar to the MRI findings from 2020. Paranasal sinuses: Visualized sinuses are unremarkable. No fluid levels. Mastoid air cells: Visualized mastoid air cells are well aerated. Bones: Unremarkable. No acute fracture. Soft tissues: Unremarkable. IMPRESSION: 1. Stable moderate-severe hydrocephalus indicating aqueductal stenosis. 2. No visible acute intracranial hemorrhage
--- NOTE | 2025-03-28 03:47 | XR_ITS ---
PROCEDURE INFORMATION: Exam: XR Chest Exam date and time: 03/28/2025 4:00 AM Age: 69 years old Clinical indication: Injury or trauma; Fall; Blunt trauma (contusions or hematomas) TECHNIQUE: Imaging protocol: Radiologic exam of the chest. Views: 1 view. COMPARISON: CR XR CHEST PORTABLE 11/05/2021 5:39 PM FINDINGS: Tubes, catheters and devices: Central venous catheter is stable in good position. No acute process identified. Lungs: Unremarkable. No consolidation. Pleural spaces: Unremarkable. No pleural effusion. No pneumothorax. Heart/Mediastinum: Unremarkable. No cardiomegaly. Bones/joints: Unremarkable. IMPRESSION: Central venous catheter is stable in good position. No acute process identified.
--- NOTE | 2025-03-28 03:47 | CT_ITS ---
PROCEDURE INFORMATION: Exam: CT Cervical Spine Without Contrast Exam date and time: 03/28/2025 3:58 AM Age: 69 years old Clinical indication: Injury or trauma; Fall; Blunt trauma; Additional info: Fall on blood thinners TECHNIQUE: Imaging protocol: Computed tomography of the cervical spine without contrast. Radiation optimization: All CT scans at this facility use at least one of these dose optimization techniques: automated exposure control; mA and/or kV adjustment per patient size (includes targeted exams where dose is matched to clinical indication); or iterative reconstruction. COMPARISON: CT ANGIO NECK 11/05/2021 6:27 PM FINDINGS: Bones: Mild diffuse decreased disc space height demonstrated at the C4-C7 levels. Bony central canal is widely patent. Facets appear normal Lungs: Lung apices are normal. Soft tissues: Unremarkable. IMPRESSION: No visible acute fracture/malalignment.
--- NOTE | 2025-03-28 03:47 | XR_ITS ---
PROCEDURE INFORMATION: Exam: XR Pelvis Exam date and time: 03/28/2025 4:00 AM Age: 69 years old Clinical indication: Injury or trauma; Fall; Blunt trauma (contusions or hematomas); Bilateral; Pelvic region TECHNIQUE: Imaging protocol: Radiologic exam of the pelvis. Views: 1 or 2 view. COMPARISON: CT ABDOMEN PELVIS W CON 02/20/2023 10:32 PM FINDINGS: Bones/joints: Unremarkable. No acute fracture. Soft tissues: Unremarkable. IMPRESSION: No acute findings.
--- OUTSIDE RECORDS SUMMARY | 2025-03-28 03:52 | XMS_ITS ---
Author Organization Unknown Plan of Treatment Description Planned Activity Planned Timing - Telephone encounter Sep 16, 2024 Patient Care team information Name Category Status Period Participants - - Proposed period not known -
[2025-03-28] MEDS: TET/DIPHTH/PERT-ADULT 0.5ML SYRINGE 0.5 ML IM (04:27)
[2025-03-28] MEDS: LIDOCAINE 1% 5ML PF VIAL 5 ML IJ (04:27)
[2025-03-28] MEDS: levoFLOXacin 750 MG TABLET PO (05:48)
[2025-03-28 05:56] VITALS: BP 153/93; PULSE 95; RESP 16; TEMP 37.2; O2SAT 95
== END 2025-03-28 05:58 | disposition home or self-care (01) ==
PROVIDERS: Emergency Provider Emergency Medicine
DX: S01.312A Laceration without foreign body of left ear, initial encounter (principal); W01.10XA Fall on same level from slipping, tripping and stumbling with subsequent striking against unspecified object, initial encounter; Z23 Encounter for immunization
CPT/HCPCS: 12052; 70450; 71045; 72125; 72170; 90471; 90715; 99285; J2003

== ENCOUNTER 2025-07-28 16:10 | Outpatient (CLI) | payer MEDICARE, SELFPAY ==
[2025-07-28 20:32] LABS: Hematocrit 43.7 % (42.0-52.0); Hemoglobin 14.9 g/dL (14.1-18.0); Immature Granulocytes % 0.4 %; Mean Corpuscular HGB Conc 34.1 g/dL (31.8-35.4); Mean Corpuscular Hemoglobin 29.0 pg (27.0-31.2); Mean Corpuscular Volume 85.2 fl (80-94); Nucleated Red Blood Cells % 0 %; Platelet Count 294 K/mm3 (142-424); Red Blood Count 5.13 M/mm3 (4.60-6.20); Red Cell Distribution Width-SD 38.0 fL; White Blood Count 5.3 K/mm3 (4.8-10.8)
[2025-07-28 20:54] LABS: Alanine Aminotransferase 15 U/L (12-78); Albumin Level 3.9 g/dl (3.5-5.0); Albumin/Globulin Ratio 1.6 (1.1-1.8); Alkaline Phosphatase 91 U/L (38-126); Anion Gap 11.2 mEq/L (5-15); Aspartate Amino Transferase 23 U/L (17-59); Bilirubin,Total 1.1 mg/dl (0.2-1.3); Blood Urea Nitrogen 11 mg/dl (9-20); Calcium 9.0 mg/dl (8.4-10.2); Carbon Dioxide 24 mmol/L (22.0-30.0); Chloride 104 mmol/L (98-107); Cholesterol 121 mg/dl (140-200); Creatinine,Serum 0.80 mg/dl (0.66-1.25); Estimated Glomerular Filt Rate 96 ml/min (>60); GFR (African American) 116 ML/MIN (>60); Globulin 2.4 g/dL (1.3-3.2); Glucose 137 mg/dl (74-100); HDL Cholesterol 36 mg/dl (40-60); Potassium 4.2 mmoL/L (3.5-5.1); Sodium 135 mmol/L (136-145); Total Protein,Serum 6.3 g/dl (6.3-8.2); Triglycerides 71 mg/dl (30-150)
[2025-07-28 21:20] LABS: Iron 61 ug/dL (49-181)
[2025-07-28 21:29] LABS: Total Iron Binding Capacity 266 ug/dL (261-462)
--- OUTSIDE RECORDS SUMMARY | 2025-07-30 10:04 | XMS_ITS | Clinical Summary ---
Author Organization [facility] Address [address], [address] [place] [address] Care Team Providers Care Background Investigator Name Role Phone Unavailable Primary Care Provider [...]
--- OUTSIDE RECORDS SUMMARY | 2025-07-30 10:04 | XMS_ITS ---
Author Organization [facility] Address [address] [place] [address] Phone Care Team Providers Care Audit Mgr Name Role Phone Daniel Noland MD Primary Care Provider [phone] Lilli Stark MD Unavailable [phone] Active Problems Problem Noted Date Diagnosed [...]
--- OUTSIDE RECORDS SUMMARY | 2025-07-30 10:04 | XMS_ITS | Clinical Summary ---
Author Organization [facility] Address [address] [place] [address] Care Team Providers Care [employer] Professional Name Role Phone Historical, Centricity Primary Care [...] therelease of HIV test results or diagnoses. [id number] Health Social History Tobacco Use Types Packs/Day Years Used Date Smoking Tobacco: Never Assessed Sex and Gender Information Value Date Recorded Sex Assigned at Not on file Legal Sex Male 8:12 PM EST Gender Identity Not on file Sexual Orientation Not on file Plan of Treatment Not on file Care Teams [employer] Professional Relationship Specialty Start Date End Date Racquel Aguila PCP - General 12/28/11
--- OUTSIDE RECORDS SUMMARY | 2025-07-30 10:04 | XMS_ITS | Clinical Summary ---
Author Organization [facility] Address [address] [place] [address] Phone Care Team Providers Care Filterer Name Role Phone Daniel Noland MD Primary Care Provider [phone] LincolnLilli denise MD Unavailable [phone] Allergies No known active allergies Medications [...] tattooing; Surgeon: Vitaliy Langston III, MD; Location: [facility] ENDOSCOPY; Service: Endoscopy COLONOSCOPY 04/20/2016 N/A Surgeon: Vitaliy Langston III, MD; Location: [facility] ENDOSCOPY; Service: Endoscopy HAND SURGERY r. hand TESTICLE SURGERY r. testicle COLECTOMY 05/03/2016 N/A LAPAROSCOPIC mobilization of splenic flextion with open sigmoid colectomy ; Surgeon: El Villagran MD; Location: [facility] MAIN OR; Service: General CENTRAL VENOUS CATHETER 05/29/2016 N/A PORT A CATH INSERTION; Surgeon: El Villagran MD; Location: [facility] MAIN OR; Service: General Medical [...] this topic Medical Devices Implanted Type Area Union Carpenter Device Identifier Shelf Expiration Date Model / Serial / Lot Xcela Standard Titanium Port - [id number] Implanted:Qty: 1 on 05/29/2016 by El Villagran MD at [facility] Right: Chest [facility] 05/17/2020 [id number] / / [id number] Procedures Procedure Name Priority Date/Time Associated Diagnosis Comments GMED EGD-COLONOSCOPY Routine 04/20/2016 12:30 PM EDT from Last 3 Months or Most Recently Relevant to Health Maintenance Results * GMED EGD-COLONOSCOPY (04/20/2016 12:30 PM EDT) 04/20/2016 12:[address] [facility] - 04/20/2016 1:21 PM EDT Plan: Consult surgery CT chest/abd/pelvis consult oncology if felt chemo needed based on CT scan/surgery Await pathology results continue PPI This section is an excerpt of the full report. us Vitaliy Langston III, MD GI PROCEDURE ORDERABLES Fi nal Result [facility] [address] [place] [address] from Last 3 Months or Most Recently Relevant to Health Maintenance Advance Directives For more information, please contact: [phone] * Full Code (Latest Code Status on File) Date Activated Date Inactivated Comments 05/03/2016 1:09 PM 05/08/2016 4:38 PM * Full Code Date Activated Date Inactivated Comments 04/20/2016 2:39 PM 04/21/2016 5:22 PM Care Teams Filterer Relationship Specialty Start Date End Date Daniel Noland MD [facility] [address] [facility] [address] PCP - General Internal Medicine-Adolescent Medicine 04/25/16 Lilli Stark MD [address] [place] [address] PCP - Hematology/Oncology Internal Medicine-Medical Oncology 05/10/16
--- OUTSIDE RECORDS SUMMARY | 2025-07-30 10:04 | XMS_ITS | Clinical Summary ---
Author Organization [facility] Address [address] [id number] Care Team Providers Care Circular Saw Edge Fuser Name Role Phone Jamir Cuenca MD Primary Care Provider [phone] Allergies No known active allergies Medications Aspirin [...] 1 (one) time each day. Active PEG 5505-HJy-DwZuq-Na Cl-NaSulf (PEG-3350/Electro lytes) 236 g reconstituted solution [...] EST Appointment [facility] [address] [place] [address] 09/30/2025 1:30 PM EST Office Visit [place] [facility] [address] [place] [address] Arya Johnston MD [address] [place] [address] Health Maintenance Due Date Last Done Comments [...] 2007 UKY-Zoster Vaccines (1 of 2) 2007 [id number] Vaccine (3 - season) 2025 03/22/2021, 03/01/2021 [...] complete this topic Insurance MEDICARE Care Teams Circular Saw Edge Fuser Relationship Specialty Start Date End Date Jamir Cuenca MD [address] [place] [address] PCP - General 09/27/22
== END 2025-07-28 23:59 | disposition home or self-care (01) ==
LOC: LAB.DROPOF 07-30 10:00
PROVIDERS: PCP Student in an Organized Health Care Education/Training Program; Visit Provider Student in an Organized Health Care Education/Training Program
DX: E78.5 Hyperlipidemia, unspecified; E66.9 Obesity, unspecified; I10 Essential (primary) hypertension; F41.9 Anxiety disorder, unspecified; R97.20 Elevated prostate specific antigen [PSA]
CPT/HCPCS: 80053; 80061; 83540; 83550; 85025; G0103

== ENCOUNTER 2025-07-29 11:06 | Outpatient (CLI) | payer MEDICARE, SELFPAY ==
[2025-07-29 11:12] LABS: Adenovirus F 40/41, stool Not Detected (NotDetected); Cyclospora Cayetanesis Not Detected (NotDetected); Plesimonas Shigalloides, PCR Not Detected (NotDetected); Salmonella, PCR Not Detected (NotDetected); Shiga-like toxin E coli Not Detected (NotDetected); Shigella Enterovasive E coli Not Detected (NotDetected); Vibrio, PCR Not Detected (NotDetected); Yersinia Entercolitica, PCR Not Detected (NotDetected)
--- OUTSIDE RECORDS SUMMARY | 2025-07-29 11:14 | XMS_ITS | Clinical Summary ---
Author Organization [facility] Address [address] [place] [address] Care Team Providers Care Education Supervisor Name Role Phone Historical, Centricity Primary Care Provider Sara vailable Source Comments This information has been disclosed to you from confidential records protectedfrom disclosure by state law. You shall make no further disclosure of thisinformation without the specific, written, and informed release of theindividual to whom it pertains, or as otherwise permitted by law. A generalauthorization for the release of medical or other information is not sufficientfor the purposes of therelease of HIV test results or diagnoses. [id number] Social History Tobacco Use Types Packs/Day Years Used Date Smoking Tobacco: Never Assessed Sex and Gender Information Value Date Recorded Sex Assigned at Not on file Legal Sex Male 8:12 PM EST Gender Identity Not on file Sexual Orientation Not on file Plan of Treatment Not on file Care Teams Education Supervisor Relationship Specialty Start Date End Date Racquel Aguila PCP - General 12/28/11
--- OUTSIDE RECORDS SUMMARY | 2025-07-29 11:14 | XMS_ITS | Clinical Summary ---
Author Organization [facility] Address [address], [address] [place] [address] Care Team Providers Care Closing Manager Name Role Phone Unavailable Primary Care Provider Unavailabl e Allergies No known active allergies Family History Medical History Relation Name Comments Asthma Neg Hx Cancer Neg Hx Diabetes Neg Hx Hearing Loss Neg Hx Social History Tobacco Use Types Packs/Day Years Used Date Smoking Tobacco: Never Sex and Gender Information Value Date Recorded Sex Assigned at Not on file Legal Sex Male 9:15 PM EST Gender Identity Not on file Sexual Orientation Not on file Last Filed Vital Signs Vital Sign Reading Time Taken Comments Blood Pressure 142/80 06/19/2011 3:03 PM EDT Pulse 72 06/19/2011 3:03 PM EDT Temperature - - Respiratory Rate - - Oxygen Saturation - - Inhaled Oxygen Concentration - - Weight 107 kg (236 lb) 06/19/2011 3:03 PM EDT Height 182.9 cm (6') 06/19/2011 3:03 PM EDT Body Mass Index 32.01 06/19/2011 3:03 PM EDT Plan of Treatment Not on file
--- OUTSIDE RECORDS SUMMARY | 2025-07-29 11:14 | XMS_ITS ---
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 Cancer of sigmoid colon 05/23/2016 Anemia due to GI blood loss 04/18/2016 Microcytic hypochromic anemia 04/18/2016 Rectal bleeding 04/18/2016 Cancer of sigmoid colon Current Treatment and Therapy Plans ONCSEH XELOX (850/130) Q21D* Plan Start Date:07/26/2016 Plan Provider:Lilli Stark MD Linked Problems Cancer of sigmoid colon (HCC )Cancer of sigmoid colon (HCC) Treatment Medications oxaliplatin (ELOXATIN) chemo infusion Past Treatment and Therapy Plans ONCOLOGY TREATMENT Plan Name Start Date Discontinue Date Treatment Medications Discontinue Reason Plan Provider Cycles OHC XELOX (850/130) Q21D 06/15/2016 07/06/2016 oxaliplatin (ELOXATIN) Plan Conversion Lilli Stark MD 2 of 8 cycles started THERAPY Plan Name Start Date Discontinue Date Treatment Medications Discontinue Reason Plan Provider ONCSEH PORT/PICC FLUSH 02/15/2017 06/17/2023 No medications scheduled. Therapy Complete -
--- OUTSIDE RECORDS SUMMARY | 2025-07-29 11:14 | XMS_ITS | Clinical Summary ---
Author Organization [facility] Address [address] [id number] Care Team Providers Care Tour Guide Name Role Phone Jamir Cuenca MD Primary Care Provider [phone] Allergies No known active allergies Medications Aspirin Low Dose 81 MG EC tablet TAKE ONE TABLET BY MOUTH EVERY DAY FOR blood thinner 2 Active atorvastatin (Lipitor) 40 MG tablet TAKE ONE TABLET BY MOUTH EVERY DAY AT night FOR cholesterol 2 Active cholecalciferol (Vitamin D-3) 25 MCG (1000 UT) tablet Take 1 tablet by mouth 1 (one) time each day. Active finasteride (Proscar) 5 MG tablet Take 5 mg by mouth every night. 2 Active hydroCHLOROthiazi de (HYDRODiuril) 25 MG tablet Take 25 mg by mouth twice a day. Active lisinopril 10 MG tablet Take 10 mg by mouth 1 (one) time each day. 2 Active Multiple Vitamin (Multivitamin) tablet Take 1 tablet by mouth 1 (one) time each day. 2 Active omeprazole (PriLOSEC) [address] capsule Take 40 mg by mouth 1 (one) time each day. Active PEG 1818-SKi-QnIya-Na Cl-NaSulf (PEG-3350/Electro lytes) 236 g reconstituted solution MIX DIRECTED AND DRINK 240 ML (8 OUNCES) BY MOUTH EVERY 10 MINUTES UNTIL FECAL EFFLUENT IS CLEAR OR OTHERWISE DIRECTED DO NOT EXCEED TOTAL VOLUME OF 4000 ML 2 Active pregabalin (Lyrica) 75 MG capsule Take 75 mg by mouth 3 times a day. Active tamsulosin (Flomax) 0.4 MG 24 hr capsule Take 0.4 mg by mouth 1 (one) time each day. Active docusate sodium (Stool Softener) 100 MG capsule Take 100 mg by mouth 2 (two) times a day. Active ferrous gluconate (Fergon) 256 (28 Fe) MG tablet Take 256 mg by mouth. 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 Family History Medical History Relation Name Comments Cardiac disorder Brother 1 Hypertension Brother 2 Hypertension Father Leukemia Father Conversions - Other Mother cerebral infarction Diabetes Mother Hypertension Mother Aneurysm Other 1 Conversions - Other Other 2 cerebral infarction Hypertension Other 3 Relation Name Status Comments Brother 1 Brother 2 Father Mother Other 1 Other 2 Other 3 Social History Tobacco Use Types Packs/Day Years Used Date Smoking Tobacco: Never Alcohol Use Standard Drinks/Week Comments No 0 (1 standard drink = 0.6 oz pur e alcohol) Sex and Gender Information Value Date Recorded Sex Assigned at Not on file Legal Sex Male 8:47 PM EDT Gender Identity Not on file Sexual Orientation Not on file Last Filed Vital Signs Vital Sign Reading Time Taken Comments Blood Pressure 118/68 09/27/2022 10:40 AM EST Pulse - - Temperature - - Respiratory Rate - - Oxygen Saturation - - Inhaled Oxygen Concentration - - Weight 107 kg (235 lb) 09/27/2022 10:40 AM EST Height 185.4 cm (6' 1 ) 09/27/2022 10:40 AM EST Body Mass Index 31 09/27/2022 10:40 AM EST Plan of Treatment Upcoming Encounters Date Type Department Care Team (Late st Contact Info) Description 09/30/2025 11:00 AM EST Appointment [facility] [address] [place] [address] 09/30/2025 1:30 PM EST Office [facility] [place] [facility] [address] [place] [address] Arya Johnston MD [address] [place] [address] Health Maintenance Due Date Last Done Comments [facility]-Depression Screening 1957 [facility]-Hepatitis C Screening 1957 [facility]-Medicare Annual Wellness (AWV) 1955 [facility]-Infant/Child/Adol SDOH Screenings 1957 [facility]- SDOH Screenings 1975 [facility]-Adult SDOH Screenings 1975 CT Colonography 2002 Colonoscopy 2002 FIT-DNA 2002 FIT 2002 FOBT 2002 Sigmoidoscopy 2002 [facility]-Colorectal Cancer Screening 2002 [facility]-Pneumococcal Vaccine: 50+ Years (1 of 1 - PCV) 2007 [facility]-Zoster Vaccines (1 of 2) 2007 [id number] Vaccine (3 - season) 2025 03/22/2021, 03/01/2021 [facility]-Influenza Vaccine (#1) 07/19/202512/06, 09/02/2020, 10/12/2019, Additional history exists [facility]-RSV Vaccine: 60+ Years or (1 - 1-dose 75+ series) 2032 [facility]-DTaP,Tdap,and Td Vaccines (2 - Td or Tdap) 03/28/2035 03/28/2025, 01/23/1997 [facility]-Obesity Intervention Completed 09/27/2022 HPV Vaccines Aged Out No longer eligi ble based on patient's age to complete this topic [facility]-HIB Vaccines Aged Out No longer e ligible based on patient's age to complete this topic [facility]-Hepatitis A Vaccines Aged Out No longer eligible based on patient's age to complete this topic [facility]-IPV Vaccines Aged Out No longer e ligible based on patient's age to complete this topic [facility]-Rotavirus Vaccines Aged Out No lo nger eligible based on patient's age to complete this topic Insurance MEDICARE Care Teams Tour Guide Relationship Specialty Start Date End Date Jamir Cuenca MD [address] [place] [address] PCP - General 09/27/22
--- OUTSIDE RECORDS SUMMARY | 2025-07-29 11:14 | XMS_ITS | Clinical Summary ---
Author Organization [facility] Address [address] [place] [address] Phone Care Team Providers Care Devops Name Role Phone Daniel Noland MD Primary Care Provider [phone] LincolnLilli denise MD Unavailable [phone] Allergies No known active allergies Medications multivitamin (THERAGRAN) Oral Tablet Take by mouth daily. Reported on 02/15/2017 Active pantoprazole (PROTONIX) 40 mg Oral Tablet, Delayed Release (E.C.) Take 1 Tab by mouth 2 times daily. 60 Tab 0 6 Active Additional Information Patient not taking.Reason: Other, Reported on 05/10/2017 cholecalciferol , vitamin D3, 1,000 unit Oral Tablet Take 1 Tab by mouth daily. Reported on 02/15/2017 Active gabapentin (NEURONTIN) 300 mg Oral CapsuleIndicati ons:Chemotherap y-induced peripheral neuropathy Take 1 Cap by mouth 3 times daily. 90 Cap 2 7 Active Additional Information Patient not taking.Reason: Advised by Physician, Reported on 05/10/2017 gabapentin (NEURONTIN) 100 mg Oral Capsule Take 1 Cap by mouth daily. Add to 300mg tablet for total dose of 400mg per day 30 Cap 7 Active Additional Information Patient not taking.Reason: Advised by Physician, Reported on 05/10/2017 hydroCHLOROthia zide (HYDRODIURIL) 25 mg Oral Tablet Take 25 mg by mouth 2 times daily. Active omeprazole (PRILOSEC) 40 mg Oral Capsule, Delayed Release(E.C.) Take 40 mg by mouth daily. Active pregabalin (LYRICA) 75 mg Oral Capsule Take 75 mg by mouth 3 times daily. Active Active Problems Problem Noted Date Diagnosed Date Chemotherapy-induced peripheral neuropathy 02/26 Cancer of sigmoid colon 05/23/2016 Anemia due to GI blood loss 04/18/2016 Microcytic hypochromic anemia 04/18/2016 Rectal bleeding 04/18/2016 Cancer of sigmoid colon Immunizations Immunization Administration Dates Next Due Influenza Patient Reported 09/08/2016 Surgical History Surgery Date Site/Laterality Comments UPPER GASTROINTESTINAL ENDOSCOPY COLONOSCOPY UPPER GASTROINTESTINAL ENDOSCOPY 04/20/2016 N/A ESOPHAGOGASTRODUODENOSCOPY with biopsy COLONOSCOPY with biopsy and tattooing; Surgeon: Vitaliy Langston III, MD; Location: [facility] ENDOSCOPY; Service: Endoscopy COLONOSCOPY 04/20/2016 N/A Surgeon: Vitaliy Langston III, MD; Location: [facility] ENDOSCOPY; Service: Endoscopy HAND SURGERY r. hand TESTICLE SURGERY r. testicle COLECTOMY 05/03/2016 N/A LAPAROSCOPIC mobilization of splenic flextion with open sigmoid colectomy ; Surgeon: El Villagran MD; Location: [facility] MAIN OR; Service: General CENTRAL VENOUS CATHETER 05/29/2016 N/A PORT A CATH INSERTION; Surgeon: El Villagran MD; Location: [facility] MAIN OR; Service: General Medical devices from this surgery are in the Medical Devices section. Medical History Medical History Date Comments Tumor cells Heartburn Brain benign neoplasm (HCC) Blood in stool Family History Medical History Relation Name Comments Heart Disease Maternal Grandfather Heart Disease Paternal Grandfather Relation Name Status Comments Maternal Grandfather Paternal Grandfather Social History Tobacco Use Types Packs/Day Years Used Date Smoking Tobacco: Never Smokeless Tobacco: Never Alcohol Use Standard Drinks/Week Comments No 0 (1 standard drink = 0.6 oz pur e alcohol) Sex and Gender Information Value Date Recorded Sex Assigned at Not on file Legal Sex Male 5:24 AM EDT Gender Identity Not on file Sexual Orientation Not on file Obstetrics History Last Filed Vital Signs Vital Sign Reading Time Taken Comments Blood Pressure 143/82 05/10/2017 12:50 PM EDT Pulse 93 05/10/2017 12:50 PM EDT Temperature 36.7 C (98 F) 05/10/2017 12:50 PM EDT Respiratory Rate 16 05/10/2017 12:5 0 PM EDT Oxygen Saturation 96% 05/10/2017 12: 50 PM EDT Inhaled Oxygen Concentration - - Weight 109.7 kg (241 lb 12.8 oz) 2016 12:50 PM EDT Height 185.4 cm (6' 1 ) 05/10/2017 12:5 0 PM EDT Body Mass Index 31.9 05/10/2017 12:50 PM EDT Plan of Treatment Health Maintenance Due Date Last Done Comments Annual Wellness Exam 1960 Hepatitis C Screening 1975 DTaP/TDaP/Td (1 - Tdap) 01/24/1997 01/23/1997 Cologuard 2002 FIT 2002 Sigmoidoscopy 2002 Virtual Colonography 2002 Pneumococcal Vaccine 50+ (1 of 1 - PCV) 2007 Zoster (1 of 2) 2007 Colon Cancer Screening 04/20/2019 Colonoscopy 04/20/2019 04/20/2016 COVID-19 Vaccine ( season) 2025 03/22/2021, 03/01/2021 Influenza Vaccine (#1) 2025 2, 09/02/2020, 10/12/2019, Additional history exists Hepatitis B Vaccine Aged Out No longe r eligible based on patient's age to complete this topic Meningococcal B Vaccine Aged Out No l onger eligible based on patient's age to complete this topic Medical Devices Implanted Type Area Camp Nurse Device Identifier Shelf Expiration Date Model / Serial / Lot Xcela Standard Titanium Port - [id number] Implanted:Qty: 1 on 05/29/2016 by El Villagran MD at [facility] Right: Chest [facility] 05/17/2020 [id number] / / [id number] Procedures Procedure Name Priority Date/Time Associated Diagnosis Comments GMED EGD-COLONOSCOPY Routine 04/20/2016 12:30 PM EDT from Last 3 Months or Most Recently Relevant to Health Maintenance Results * GMED EGD-COLONOSCOPY (04/20/2016 12:30 PM EDT) 04/20/2016 12:3 0 PM EDT Impressions [facility] - 04/20/2016 1:21 PM EDT Plan: Consult surgery CT chest/abd/pelvis consult oncology if felt chemo needed based on CT scan/surgery Await pathology results continue PPI This section is an excerpt of the full report. us Vitaliy Langston III, MD GI PROCEDURE ORDERABLES Fi nal Result [facility] [address] [place] [address] from Last 3 Months or Most Recently Relevant to Health Maintenance Advance Directives For more information, please contact: [phone] * Full Code (Latest Code Status on File) Date Activated Date Inactivated Comments 05/03/2016 1:09 PM 05/08/2016 4:38 PM * Full Code Date Activated Date Inactivated Comments 04/20/2016 2:39 PM 04/21/2016 5:22 PM Care Teams Devops Relationship Specialty Start Date End Date Daniel Noland MD [facility] [address] [facility] [address] PCP - General Internal Medicine-Adolescent Medicine 04/25/16 Lilli Stark MD [address] [place] [address] PCP - Hematology/Oncology Internal Medicine-Medical Oncology 05/10/16
[2025-07-29 13:55] LABS: Clostridium Difficile A/B, PCR Detected (NotDetected)
== END 2025-07-29 23:59 | disposition home or self-care (01) ==
LOC: LAB 11:08
PROVIDERS: PCP Nurse Practitioner Family; Visit Provider Student in an Organized Health Care Education/Training Program
DX: K92.1 Melena (principal); R19.7 Diarrhea, unspecified
CPT/HCPCS: 80053; 80061; 83540; 83550; 85025; 87045; 87506; G0103

== ENCOUNTER 2025-08-26 13:25 | Outpatient (CLI) | payer MEDICARE, SELFPAY ==
--- NOTE | 2025-08-26 13:45 | CA_ITS ---
APPROVED REPORT EXAM: Comprehensive 2D, Doppler, and color-flow Echocardiogram Propagator Laborer: Karon Soria RT(R) Ht: 6 ft 1 in Wt: 225lbs BSA: 2.26 BP: 137/99 mmHg Indications: pre op assessment for colonoscopy, CVA, hx colon cancer 2D Dimensions EF AP4 52.20 % GL Strain -15.5 % M-Mode Dimensions RVDd 2.65 cm (0.9-2.6) LA Diam 1.43 cm (1.9-4.0) LVDd 4.15 cm (3.5-5.7) LVDs 2.97 cm (3.5-5.7) IVSd 0.68 cm (0.6-1.1) PWd 0.89 cm (0.6-1.1) EF (Teich) 55.20% FS 28.40% EDV (Teich) 76.40 mL ESV (Teich) 34.20 mL LV Diastology E Decel Time 257 (160-240 msec) E/A Ratio 0.6 Aortic Valve JAHAIRA Index 1.84 cm2/m2 AoV Peak Jamey. 107.0 (50-130 cm/s) AO Peak GR. 4.60 mmHg AO Mean GR. 2.30 (<5 mmHg) AO VTI 18.7 (18-25 cm) JAHAIRA (VTI) 4.28 (2.5-4.5 cm2) Mitral Valve MV E Max Jamey. 66.0 (40-130 cm/s) MV A Velocity 104.0 (40-130 cm/s) E/A Ratio 0.63 MV PHT 75.0 ms Left Ventricle The left ventricle is normal size. Left ventricular systolic function is normal. The left ventricular ejection fraction is within the normal range. Proximal septal thickening is present. The septum is asynchronous. The left ventricular diastolic function is normal. LVEF is 55% Right Ventricle The right ventricle is normal size. The right ventricular systolic function is normal. Atria The left atrium size is normal. The right atrium size is normal. There is no color Doppler evidence of interatrial shunt. Aortic Valve The aortic valve is mildly thickened. There is no hemodynamically significant aortic valvular stenosis. No aortic regurgitation is present. Mitral Valve The mitral valve is normal in structure. No evidence of mitral valve stenosis. Trace mitral regurgitation is present. Tricuspid Valve The tricuspid valve leaflets are thin and pliable. Trace tricuspid regurgitation. There is insufficient TR jet to estimate RVSP. Pulmonic Valve The pulmonary valve is grossly normal in structure. Trace pulmonic valve regurgitation is present. Great Vessels The aortic root is normal in size. IVC is normal in size and collapses >50% with inspiration. Pericardium There is no pericardial effusion. Other Information Study Quality: Fair Conclusion Normal biventricular systolic function. The septum is asynchronous. No significant valvular stenosis or regurgitation. Electronically signed by : Alanna Almonte MD 08/29/2025 23:40:38
== END 2025-08-26 23:59 | disposition home or self-care (01) ==
LOC: RT 13:27
PROVIDERS: PCP Nurse Practitioner Family; Visit Provider Nurse Practitioner Family
DX: Z01.810 Encounter for preprocedural cardiovascular examination (principal); I63.9 Cerebral infarction, unspecified; R94.31 Abnormal electrocardiogram [ECG] [EKG]; R93.1 Abnormal findings on diagnostic imaging of heart and coronary circulation
CPT/HCPCS: 93306

== ENCOUNTER 2025-09-16 12:17 | Day surgery (SDC) | payer MEDICARE, SELFPAY ==
[2025-09-15 13:47] VITALS: BMI 29.7
--- NOTE | 2025-09-15 15:30 | EXP.HP ---
History of Present Illness *Admission Date: 09/16/25 *History of present illness: Mr. Michaels is a 70-year-old gentleman who is here for diagnostic colonoscopy. The patient recently had C. difficile and E. coli colitis and was treated. He is improving. He also reports a family history of colon cancer.. The examination is deemed medically necessary for diagnostic colonoscopy. The patient has been seen, interviewed and examined prior to the procedure by both myself and the anesthesia provider. [facility] Disclaimer: The information contained in this section may have been updated after the patient was seen, as this information can be updated by other users. Medical History Colon cancer High cholesterol Hypertension CVA (cerebral vascular accident) E. coli colitis C. difficile colitis Abnormal electrocardiogram [ECG] [EKG] Encounter for removal of sutures Visit for wound check Brain lesion History of anemia Nocturia Hyperlipemia, mixed Surgical History History of colon resection Port-A-Cath in place Family History Other Family history of cancer Family history of diabetes mellitus type II Family history of hyperlipidemia Family history of hypertension Social History Smoking Status: Unknown if ever smoked alcohol intake: never substance use type: denies use current occupational status: disabled Travel in the last 8 weeks?: None household members: spouse housing: other current occupational exposures/hazards: No caffeine: Yes Have you lived/traveled outside US in past 30 days?: No Contact w/someone who lives/traveled outside US past 30 days?: No Exposure to someone with infectious disease in past 14 days?: No Do you have a fever (greater than 100.4 F or 38 C)?: No Have you tested positive for COVID-19?: No Exposed to someone with COVID-19 in past 14 days?: No Do you have a sore throat?: No Do you have a cough?: No Do you have any weakness?: No Are you experiencing any nausea/vomitting?: No Do you have any diarrhea?: No Are you experiencing any unusual bleeding?: No Do you have any muscle aches/pain?: No Do you have any abdominal pain?: No Are you experiencing loss of taste or smell?: No Other Medical History Have you received the Flu Vaccine for this season: Yes Have you received the Pneumonia Vaccine: No Review of Systems Review of Systems Review of systems (narrative): Negative *Cardiovascular Comments: Negative *Gastrointestinal Comments: Negative *Genitourinary Comments: Negative *Musculoskeletal Comments: Negative *Neurologic Comments: Negative Meds Home Medications and Allergies Home Medications ?Medication ?Instructions ?Recorded ?Confirmed ?Type sildenafil (pulm.hypertension) 20 20 mg PO DAILY PRN sexual activity 08/23/23 09/16/25 Rx mg tablet #10 tabs mirabegron 50 mg tablet,extended 50 mg PO DAILY #30 tabs 05/19/24 09/16/25 Rx release 24 hr ferrous sulfate 142 mg (45 mg 142 mg PO DAILY Supplement #90 tabs 08/11/24 09/16/25 Rx iron) tablet,extended release vibegron 75 mg tablet (Gemtesa) 75 mg PO DAILY 08/11/24 09/16/25 History trospium 20 mg tablet 20 mg PO DAILY 02/09/25 09/16/25 History ferrous sulfate, dried 159 mg (45 45 mg PO DAILY 04/13/25 09/16/25 History mg iron) tablet,extended release (iron ER) finasteride 5 mg tablet See Rx Instructions .Route 08/21/25 09/16/25 Rx .COMPLEX #90 tabs tamsulosin 0.4 mg capsule See Rx Instructions .Route 08/21/25 09/16/25 Rx .COMPLEX #180 caps aspirin 81 mg tablet,delayed See Rx Instructions .Route 08/26/25 09/16/25 Rx release .COMPLEX #90 tabs atorvastatin 40 mg tablet See Rx Instructions .Route 08/26/25 09/16/25 Rx .COMPLEX #90 tabs lisinopril 10 mg tablet See Rx Instructions .Route 08/26/25 09/16/25 Rx .COMPLEX #90 tabs multivitamin (One Daily See Rx Instructions .Route 08/26/25 09/16/25 Rx Multivitamin tablet) .COMPLEX #90 tabs pantoprazole 40 mg tablet,delayed See Rx Instructions .Route 08/26/25 09/16/25 Rx release .COMPLEX #90 tabs New Prescriptions to Start Prescriptions: Allergies Allergy/AdvReac Type Severity Reaction Status Date / Time No Known Allergies Allergy Verified 09/15/25 13:45 Exam Data for Last 24 hours I & O for Last 24 hours: Intake & Output 09/12/25 09/13/25 09/14/25 09/15/25 23:59 23:59 23:59 23:59 Weight 225 lb *Routine HEENT Exam Head: Present normocephalic Eye: Present EOMI and PERRL ENT: Present mucous membranes moist *Routine Neck Exam Neck: Present supple *Routine Respiratory Exam Respiratory: Present CTA bilaterally *Routine Cardiovascular Exam Cardiovascular: Present RRR *Routine Abdominal Exam Abdominal: Present soft and normoactive bowel sounds; Absent tenderness *Routine Rectal Exam Rectal:: deferred *Routine Genitalia Exam Genitalia:: deferred *Routine Extremities Exam Extremities: Absent cyanosis, clubbing or edema *Routine Skin Exam Skin: Present warm; Absent rash *Routine Neurological Exam Neurological: Present alert and oriented X3 Assessment and Plan *Assessment and plan (1) Colitis: Status: Acute Category: Medical Code(s): K52.9 - Noninfective gastroenteritis and colitis, unspecified (2) H/O colon cancer, stage III: Status: Acute Category: Medical Code(s): Z85.038 - Personal history of other malignant neoplasm of large intestine Plan A/P: 1. Recent microbial colitis (E. coli and C. difficile) is the preprocedural diagnosis. The patient does have a personal history of colon cancer and a family history of colon cancer. The patient will be anesthetized/sedated using MAC sedation. The patient has been seen and examined. Cardiac and lung assessment prior to the examination is stable. Proceed with planned diagnostic colonoscopy.
--- NOTE | 2025-09-16 07:04 | P.PCN_ITS ---
[facility] Procedure Note Date: 09/16/25 Time: 14:19 Procedure Note:: Colonoscopy Procedure Report: Colonoscopy Endoscopist: Ananth Pepe II, MD Referring physician: GENE Guardado Date of Procedure: September 16, 2025 Equipment: Olympus [id number] adult colonoscope Sedation: MAC sedation Indication: Mr. Michaels is a 70-year-old gentleman who is here for screening colonoscopy. The patient does have a personal history of colon cancer and had colon resection (patient believes in 2016). His last colonoscopy was around that time. He reports no abdominal pain, weight loss, change in his bowel habits or rectal bleeding. The patient believes that his paternal grandmother may have had colon cancer. The patient recently had C. difficile and E. coli colitis and was treated. This has resolved. The examination is deemed medically necessary for diagnostic colonoscopy. Procedure: Prior to the procedure, a history and physical exam was performed, and patient's medications and allergies were reviewed. The risks, benefits and alternatives of the sedation and procedure were discussed with the patient. All questions were answered and informed consent was obtained. The patient was brought to the procedure room. Patient identification and proposed procedure were verified by the physician and the nurse. The patient was placed in a left lateral decubitus position and the scope was passed under direct vision. Throughout the procedure, the patient's blood pressure, pulse, and oxygen saturations were monitored continuously. The colonoscopy was accomplished without difficulty. The patient tolerated the procedure well. Findings: On digital rectal examination there was normal rectal tone. There were no external hemorrhoids. The prostate was 2-3+, mildly firm but symmetric without nodules. The colonoscope was introduced through the anal canal to the rectum and advanced to the cecum. The ileocecal valve and appendiceal orifice were identified. The scope was advanced a short distance into the ileum which appeared grossly normal. The scope was then withdrawn into the colon. The cecum, ascending and transverse colon and mucosa were grossly normal. There were scattered diverticuli throughout the descending colon. There was some increased colon luminal diameter throughout. The colocolonic anastomosis from prior low anterior resection was end-to-side anastomosis and was well-healed and normal in appearance. The rectum itself was normal. Upon retroflexion within the rectum there were grade 1-2 internal hemorrhoids. The preparation was fair to good throughout with Warren Preparation Score of 7 out of 9. The cecal time was 12 minutes. Impression: 1. Left-sided diverticulosis 2. Normal end-to-side colocolonic anastomosis (after prior low anterior resection) 3. Grade 1-2 internal hemorrhoids Plan: Based upon the patient's personal history of colon cancer, I would recommend repeat screening/surveillance colonoscopy in 5 years.
[2025-09-16 12:49] VITALS: BP 167/92; PULSE 89; RESP 16; TEMP 36.3; O2SAT 96; BMI 29.7
[2025-09-16] MEDS: LACTATED RINGERS 1000ML 1,000 ML 50 ML IV (13:01)
--- NOTE | 2025-09-16 13:21 | P.PNANES_ITS ---
[facility] Disclaimer: The information contained in this section may have been updated after the patient was seen, as this information can be updated by other users. Medical History Colon cancer High cholesterol Hypertension CVA (cerebral vascular accident) E. coli colitis C. difficile colitis Abnormal electrocardiogram [ECG] [EKG] Encounter for removal of sutures Visit for wound check Brain lesion History of anemia Nocturia Hyperlipemia, mixed Surgical History History of colon resection Port-A-Cath in place Family History Other Family history of cancer Family history of diabetes mellitus type II Family history of hyperlipidemia Family history of hypertension Social History Smoking Status: Unknown if ever smoked alcohol intake: never substance use type: denies use current occupational status: disabled Travel in the last 8 weeks?: None household members: spouse housing: other current occupational exposures/hazards: No caffeine: Yes Have you lived/traveled outside [place] in past 30 days?: No Contact w/someone who lives/traveled outside [place] past 30 days?: No Exposure to someone with infectious disease in past 14 days?: No Do you have a fever (greater than 100.4 F or 38 C)?: No Have you tested positive for COVID-19?: No Exposed to someone with COVID-19 in past 14 days?: No Do you have a sore throat?: No Do you have a cough?: No Do you have any weakness?: No Are you experiencing any nausea/vomitting?: No Do you have any diarrhea?: No Are you experiencing any unusual bleeding?: No Do you have any muscle aches/pain?: No Do you have any abdominal pain?: No Are you experiencing loss of taste or smell?: No [facility] Anesthesia Checklist Patient Identification Patient Identification: Arm Band and Verbal (Name & ) Structural Data Admitted From: Home Planned Operative Procedure/s: colonscopy Consent for Planned Operative Procedure(s) Verified: Yes Verified Documents: Surgical Consent and History and Physical NPO Status Verified Time NPO: 00:00 Additional verifications Anesthesia Reactions: No Previous Colonoscopy: Yes Airway Assessment Mallampati Score:: Class II C-Spine Mobility Assessed: Yes TMJ Mobility Assessed: Yes Dentition: Good Dentition Neurological Assessment Level of Consciousness: Awake, Alert and Appropriate Hx Seizures: No Numbness or tingling in extremities: No Anesthesia Plan Anesthesia Risk discussed: Yes Anesthesia Plan: Verified ASA Class: II Anesthesia Type: MAC
[2025-09-16 14:18] VITALS: BP 145/81; PULSE 83; RESP 14; TEMP 36.2; O2SAT 99
[2025-09-16 14:28] VITALS: BP 151/82; PULSE 84; O2SAT 97
[2025-09-16 14:38] VITALS: BP 146/78; PULSE 82; O2SAT 98
[2025-09-16 14:48] VITALS: BP 140/60; PULSE 87; RESP 16
== END 2025-09-16 14:48 | disposition home or self-care (01) ==
PROVIDERS: PCP Nurse Practitioner Family; Visit Provider Internal Medicine Gastroenterology
PROC: 0DJD8ZZ Inspection of Lower Intestinal Tract, Via Natural or Artificial Opening Endoscopic (ICD-10-PCS; CPT 45378; principal; 2025-09-16 14:00)
DX: Z12.11 Encounter for screening for malignant neoplasm of colon (principal); K57.30 Diverticulosis of large intestine without perforation or abscess without bleeding; K64.0 First degree hemorrhoids; K64.1 Second degree hemorrhoids; K52.9 Noninfective gastroenteritis and colitis, unspecified; D64.9 Anemia, unspecified; E78.5 Hyperlipidemia, unspecified; I10 Essential (primary) hypertension; Z79.82 Long term (current) use of aspirin; Z85.038 Personal history of other malignant neoplasm of large intestine; Z90.49 Acquired absence of other specified parts of digestive tract
CPT/HCPCS: 45378; J2003; J2704; J7120